=== PATIENT | female | born 1975 | race Caucasian/White ===

== ENCOUNTER 2016-10-14 19:31 | Emergency (ER) | payer OTHER ==
[~2016-10-14] VITALS: Ht 172.7 cm; Wt 107.0 kg
[~2016-10-14 19:31] MED LIST: PRD20T PO
--- OUTSIDE RECORDS SUMMARY | 2016-10-14 19:35 | XMS REPORT | Continuity of Care Document ---
Author Author [facility] Organization [facility] Address Unknown Phone Unavailable Care Team Providers Care General Farmer Name Role Phone [facility] OF PCP Insurance Providers Payer Name Policy Number Subscriber Name Relationship Self Pay Nancy Hernadez 18 Self / Same As Patient Advance Directives Directive Response Recorded Date/Time Advance Directives No 05/19/16 1:33pm Resuscitation Status Full Code 05/19/16 1:33pm Chief Complaint and Reason for Visit Chief Complaint Back Problems Reason for Visit spinal stenosis Problems No problem information available. Medications Current Home Medications Medication Dose Units Route Directions Days/Qty Instructions Start Date Prednisone 20 Mg 20 Mg Oral As Directed 24 Take 3 tabs(60mg)daily, in a.m. 3 days. Then take 2 tabs each a.m. 5 days 10 take 1 tab each a.m. 5 days 05/19/16 Social History Social History Problem Response Recorded Date/Time Alcohol Use Occasionally Uses 05/19/2016 1:33pm Recreational Drug Use No 05/19/2016 1:33pm Recent Foreign Travel No 05/19/2016 12:30pm Recent Infectious Disease Exposure No 05/19/2016 12:30pm Hospitalization with Isolation Denies 05/19/2016 12:30pm Smoking Status Current Everyday Smoker 05/19/2016 1:33pm Recent Hopitalizations No 05/19/2016 1:33pm Hospitalization with Isolation Denies 05/19/2016 12:30pm Query Response Start Date Stop Date Smoking Status Current Everyday Smoker Hospital Discharge Instructions No hospital discharge instructions. Plan of Care Discharge Date 05/19/16 3:25pm Disposition 01 HOME, SELF-CARE Condition at Discharge Stable/Unchanged Instructions/Education Provided Lumbar Spinal Stenosis (ED) Prescriptions See Medication Section Referrals [facility] - Primary Care Physician Additional Instructions/Education All discharge instructions reviewed with patient and/or family. Voiced understanding. Take prednisone as directed. Make arrangements with spinal surgery for consultation. Functional Status No functional status results. Allergies, Adverse Reactions, Alerts No known allergies. Immunizations No immunization records. Vital Signs Acute Vital Signs Vital Response Date/Time Temperature (Fahrenheit) 97.5 degrees F (97.6 - 99.5) 05/19/2016 3:17pm Temperature (Calculated Celsius) 36.41319 degrees C (36.4 - 37.5) 05/19/2016 3:17pm Pulse Rate (adult) 70 bpm (60 - 90) 05/19/2016 12:30pm Respiratory Rate 16 bpm (12 - 24) 05/19/2016 12:30pm Blood Pressure 135/70 mm Hg 05/19/2016 12:30pm Blood Pressure Mean 91 mm Hg 05/19/2016 12:30pm Pain Numeric Pain Scale 7 05/19/2016 3:17pm Height (Feet) 5 feet 05/19/2016 12:30pm Height (Inches) 8 inches 05/19/2016 12:30pm Height (Calculated Centimeters) 172.809159 cm 05/19/2016 12:30pm Weight (Pounds) 195 pounds 05/19/2016 12:30pm Weight (Calculated Kilograms) 88.670472 kilograms 05/19/2016 12:30pm Capillary Refill Capillary Refill Less Than 3 Seconds 05/19/2016 12:30pm Height 5 ft 8 in Weight 195 lb Body Mass Index 29.6 kg/m^2 Results Laboratory Results Test Name Result Units Flags Reference Collection Date/Time Result Date/ Time Comments White Blood Count 10.2 10^3/uL 4.3-11.0 05/19/2016 1:57pm 05/19/2016 2: 04pm Red Blood Count 4.69 10^6/uL 4.35-5.85 05/19/2016 1:57pm 05/19/2016 2: 04pm Hemoglobin 14.4 G/DL 11.5-16.0 05/19/2016 1:57pm 05/19/2016 2:04pm Hematocrit 42 % 35-52 05/19/2016 1:57pm 05/19/2016 2:04pm Mean Corpuscular Volume 90 FL 80-99 05/19/2016 1:57pm 05/19/2016 2: 04pm Mean Corpuscular Hemoglobin 31 PG 25-34 05/19/2016 1:57pm 05/19/2016 2: 04pm Mean Corpuscular Hemoglobin Concent 34 G/DL 32-36 05/19/2016 1:57pm 2:04pm Red Cell Distribution Width 13.4 % 10.0-14.5 05/19/2016 1:57pm 2015 2:04pm Platelet Count 290 10^3/uL 130-400 05/19/2016 1:57pm 05/19/2016 2:04pm Mean Platelet Volume 11.4 FL H 7.4-10.4 05/19/2016 1:57pm 05/19/2016 2: 04pm Neutrophils (%) (Auto) 64 % 42-75 05/19/2016 1:57pm 05/19/2016 2:04pm Lymphocytes (%) (Auto) 26 % 12-44 05/19/2016 1:57pm 05/19/2016 2:04pm Monocytes (%) (Auto) 8 % 0-12 05/19/2016 1:57pm 05/19/2016 2:04pm Eosinophils (%) (Auto) 2 % 0-10 05/19/2016 1:57pm 05/19/2016 2:04pm Basophils (%) (Auto) 0 % 0-10 05/19/2016 1:57pm 05/19/2016 2:04pm Neutrophils # (Auto) 6.5 X 10^3 1.8-7.8 05/19/2016 1:57pm 05/19/2016 2: 04pm Lymphocytes # (Auto) 2.7 X 10^3 1.0-4.0 05/19/2016 1:57pm 05/19/2016 2: 04pm Monocytes # (Auto) 0.8 X 10^3 0.0-1.0 05/19/2016 1:57pm 05/19/2016 2: 04pm Eosinophils # (Auto) 0.2 10^3/uL 0.0-0.3 05/19/2016 1:57pm 05/19/2016 2 :04pm Basophils # (Auto) 0.0 10^3/uL 0.0-0.1 05/19/2016 1:57pm 05/19/2016 2: 04pm Urine Color YELLOW 05/19/2016 1:45pm 05/19/2016 2:08pm Urine Clarity CLEAR 05/19/2016 1:45pm 05/19/2016 2:08pm Urine pH 6 5-9 05/19/2016 1:45pm 05/19/2016 2:08pm Urine Specific [place] 1.020 1.016-1.022 05/19/2016 1:45pm 2015 2:08pm Urine Protein NEGATIVE NEGATIVE 05/19/2016 1:45pm 05/19/2016 2:08pm Urine Glucose (UA) NEGATIVE NEGATIVE 05/19/2016 1:45pm 05/19/2016 2: 08pm Urine RBC (Auto) NEGATIVE NEGATIVE 05/19/2016 1:45pm 05/19/2016 2: 08pm Urine Ketones NEGATIVE NEGATIVE 05/19/2016 1:45pm 05/19/2016 2:08pm Urine Nitrite NEGATIVE NEGATIVE 05/19/2016 1:45pm 05/19/2016 2:08pm Urine Bilirubin NEGATIVE NEGATIVE 05/19/2016 1:45pm 05/19/2016 2: 08pm Urine Urobilinogen NORMAL MG/DL NORMAL 05/19/2016 1:45pm 05/19/2016 2: 08pm Urine Leukocyte Esterase NEGATIVE NEGATIVE 05/19/2016 1:45pm 2015 2:08pm Urine RBC NONE /HPF 05/19/2016 1:45pm 05/19/2016 2:08pm Urine WBC RARE /HPF 05/19/2016 1:45pm 05/19/2016 2:08pm Urine Bacteria MODERATE /HPF * 05/19/2016 1:45pm 05/19/2016 2:08pm Urine Squamous Epithelial Cells 5-10 /HPF 05/19/2016 1:45pm 2015 2:08pm Urine Crystals NONE /LPF 05/19/2016 1:45pm 05/19/2016 2:08pm Urine Casts NONE /LPF 05/19/2016 1:45pm 05/19/2016 2:08pm Urine Mucus SMALL /LPF * 05/19/2016 1:45pm 05/19/2016 2:08pm Urine Culture Indicated YES 05/19/2016 1:45pm 05/19/2016 2:08pm Sodium Level 138 MMOL/L 135-145 05/19/2016 1:57pm 05/19/2016 2:24pm Potassium Level 4.2 MMOL/L 3.6-5.0 05/19/2016 1:57pm 05/19/2016 2:24pm Chloride Level 111 MMOL/L H 98-107 05/19/2016 1:57pm 05/19/2016 2:24pm Carbon Dioxide Level 19 MMOL/L L 21-32 05/19/2016 1:57pm 05/19/2016 2: 24pm Anion Gap 8 MMOL/L 5-14 05/19/2016 1:57pm 05/19/2016 2:24pm Blood Urea Nitrogen 10 MG/DL 7-18 05/19/2016 1:57pm 05/19/2016 2:24pm Creatinine 0.67 MG/DL 0.60-1.30 05/19/2016 1:57pm 05/19/2016 2:24pm BUN/Creatinine Ratio 15 05/19/2016 1:57pm 05/19/2016 2:24pm Estimat Glomerular Filtration Rate > 60 05/19/2016 1:57pm 2015 2:24pm GFR INTERPRETIVE DATA UNITS FOR ESTIMATED GFR (eGFR): mL/min/1.73 M2 REFERENCE RANGE FOR ESTIMATED GFR (eGFR) eGFR NORMAL eGFR >60 MODERATELY DECREASED eGFR 30-59 SEVERLY DECREASED eGFR 15-29 KIDNEY FAILURE <15 (OR DIALYSIS) Glucose Level 111 MG/DL H 70-105 05/19/2016 1:57pm 05/19/2016 2:24pm Calcium Level 9.0 MG/DL 8.5-10.1 05/19/2016 1:57pm 05/19/2016 2:24pm Total Bilirubin 0.3 MG/DL 0.1-1.0 05/19/2016 1:57pm 05/19/2016 2:24pm Alkaline Phosphatase 76 U/L 40-136 05/19/2016 1:57pm 05/19/2016 2:24pm Aspartate Amino Transf (AST/SGOT) 14 U/L 5-34 05/19/2016 1:57pm 2015 2:24pm Alanine Aminotransferase (ALT/SGPT) 20 U/L 0-55 05/19/2016 1:57pm 05/19 2:24pm Total Protein 6.6 G/DL 6.4-8.2 05/19/2016 1:57pm 05/19/2016 2:24pm Albumin 3.7 G/DL 3.2-4.5 05/19/2016 1:57pm 05/19/2016 2:24pm Procedures No known history of procedures. Encounters Encounter Location Arrival/Admit Date Discharge/Depart Date Attending Provider Departed Emergency Room [facility] 05/19/16 12:14pm 3:25pm BAKARI DYE MD Recent Diagnosis
[2016-10-14] MEDS ORDERED: OMEP20CA12 PO (19:38)
[2016-10-14] MEDS ORDERED: LEVO25TA2 PO (19:38)
--- NOTE | 2016-10-14 20:00 | ED EENT ---
History of Present Illness General Chief Complaint: Oral/Throat Problems Stated Complaint: THROAT AND TONGUE SWELLING/NECK SWELLING AND PAIN Nursing Triage Note: Pt c/o posterior tongue swelling and throat swelling starting approx 20 min ago. Pt denies SOA. Pt reports difficulty swallowing. Pt unsure of any new foods or medications but states she started using vaport cigarettes today for first time. Source: patient, RN notes reviewed Exam Limitations: no limitations History of Present Illness Time seen by provider: 20:00 Initial Comments As above. No previous, or similar episodes. No known fever. 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) Severity: moderate Location: throat Prearrival Treatment: no prearrival treatment Modifying Factors: Improves With Other (unknown) Associated Symptoms: No fever, sore throat Allergies and Home Medications Allergies Coded Allergies: erythromycin base (Unverified Allergy, Unknown, 10/14/16) Home Medications Cephalexin 500 Mg Capsule #20 500 MG PO BID Prescribed by: FARIDA DUNCAN on 10/14/162125 Levothyroxine Sodium 25 Mcg Tablet Unknown Dose PO (Reported) Omeprazole 20 Mg Capsule.dr 20 MG PO DAILY (Reported) Review of Systems Constitutional: see HPINo fever Throat: see HPI pain swelling painful swallowing : No All Other Systems Reviewed Negative Unless Noted: Yes (Negative excepted noted.) Past Iyjvmtp-Hnheos-Aiavlb Hx Patient Social History Alcohol Use: Occasionally Uses Recreational Drug Use: No Smoking Status: Current Everyday Smoker Type Used: Cigarettes, Electronic/Vapor Recent Foreign Travel: No Contact w/Someone Who Travel: No Recent Infectious Disease Expo: No Recent Hopitalizations: No Surgeries HX Surgeries: Yes (right shoulder) Surgeries: Hysterectomy, Tonsillectomy Respiratory Hx Respiratory Disorders: No Cardiovascular Hx Cardiac Disorders: No Neurological Hx Neurological Disorders: No Reproductive System Hx Reproductive Disorders: No Genitourinary Hx Genitourinary Disorders: No Gastrointestinal Hx Gastrointestinal Disorders: Yes Gastrointestinal Disorders: Gastroesophageal Reflux Musculoskeletal Hx Musculoskeletal Disorders: No Musculoskeletal Disorders: Fibromyalgia Endocrine Hx Endocrine Disorders: Yes Endocrine Disorders: Hypothyroidsim HEENT HX ENT Disorders: No Cancer Hx Cancer: No Psychosocial Hx Psychiatric Problems: Yes Behavioral Health Disorders: Anxiety Integumentary HX Skin/Integumentary Disorder: No Blood Transfusions Hx Blood Disorders: No Physical Exam Vital Signs Vital Sign - Last 12Hours 10/14/16 19:39 Temp 97.8 Pulse 79 Resp 18 B/P 132/86 Pulse Ox 98 O2 Delivery Room Air General Appearance: WD/WN no apparent distress obese Ears: bilateral ear TM normal, bilateral ear auricle normal, bilateral ear canal normal Mouth/Throat: pharynx normalNo mandibular swelling, pharynx tenderness Neck: supple tender lateral Cardiovascular: regular rate, rhythm Respiratory: No no respiratory distress Gastrointestinal: other (obese) Neurologic/Psychiatric: no motor/sensory deficits alert normal mood/affect oriented x 3 Skin: warm/dryNo rash Progress/Results/Core Measures Results/Orders Lab Results Laboratory Tests Test 10/14/16 20:14 Range/Units Basophils # (Auto) 0.0 0.0-0.1 10^3/uL Basophils (%) (Auto) 0 0-10 % Eosinophils # (Auto) 0.2 0.0-0.3 10^3/uL Eosinophils (%) (Auto) 1 0-10 % Hematocrit 44 35-52 % Hemoglobin 14.9 11.5-16.0 G/DL Lymphocytes # (Auto) 2.7 1.0-4.0 X 10^3 Lymphocytes (%) (Auto) 21 12-44 % Mean Corpuscular Hemoglobin 31 25-34 PG Mean Corpuscular Hemoglobin Concent 34 32-36 G/DL Mean Corpuscular Volume 90 80-99 FL Mean Platelet Volume 11.5 H 7.4-10.4 FL Monocytes # (Auto) 0.7 0.0-1.0 X 10^3 Monocytes (%) (Auto) 6 0-12 % Neutrophils # (Auto) 9.2 H 1.8-7.8 X 10^3 Neutrophils (%) (Auto) 72 42-75 % Platelet Count 278 130-400 10^3/uL Red Blood Count 4.86 4.35-5.85 10^6/uL Red Cell Distribution Width 13.1 10.0-14.5 % White Blood Count 12.8 H 4.3-11.0 10^3/uL My Orders Orders-FARIDA DUNCAN DO Cbc With Automated Diff (10/14/16 20:03) Dexamethasone Pf Injection (Decadron Pf (10/14/16 20:15) Ct Neck (Soft Tissue) Wo (10/14/16 20:26) Cephalexin Capsule (Keflex Capsule) (10/14/16 21:15) Ketorolac Injection (Toradol Injection) (10/14/16 21:15) Medications Given in ED Current Medications Medications Dose Ordered Sig/Lorie Route Start Time Stop Time Status Last Admin Dose Admin Cephalexin HCl 500 mg ONCE ONCE PO 10/14/16 21:15 10/14/16 21:16 DC 10/14/16 21:37 500 MG Dexamethasone Sodium Phosphate 10 mg ONCE ONCE IM 10/14/16 20:15 10/14/16 20:16 DC 10/14/16 20:14 10 MG Ketorolac Tromethamine 60 mg ONCE ONCE IM 10/14/16 21:15 10/14/16 21:16 DC 10/14/16 21:37 60 MG Vital Signs/I&O Vital Sign - Last 12Hours 10/14/16 10/14/16 19:39 21:45 Temp 97.8 97.8 Pulse 79 79 Resp 18 18 B/P 132/86 Pulse Ox 98 98 O2 Delivery Room Air Blood Pressure Mean: 101 Diagnostic Imaging Diagonstic Imaging: CT Plain Films/CT/US/NM/MRI: other (neck unremarkable) Departure Impression Impression: Primary Impression: Acute pharyngitis Disposition: 01 HOME, SELF-CARE Condition: Improved Departure-Patient Inst. Decision time for Depature: 21:25 Referrals: [facility] (PCP/Family) Primary Care Physician Patient Instructions: Sore Throat, Adult (DC) Scripts Cephalexin (Keflex)500 Mg [id number] Mg PO BID #20 CAP Ref 0 Prov:FARIDA DUNCAN DO 10/14/16 FARIDA DUNCAN DO Oct 14, 2016 20:00
[2016-10-14] MEDS ORDERED: DEXAMETHASONE PF 10 MG/ML (DECADRON) VIAL IM ONE (20:15)
[2016-10-14 20:22] LABS: BASOPHILS % (AUTO) 0 % (0-10); EOSINOPHILS # (AUTO) 0.2 10^3/uL (0.0-0.3); EOSINOPHILS % (AUTO) 1 % (0-10); LYMPHOCYTES # (AUTO) 2.7 X 10^3 (1.0-4.0); LYMPHOCYTES % (AUTO) 21 % (12-44); MEAN CORPUSCULAR HEMOGLOBIN 31 PG (25-34); MEAN CORPUSCULAR HGB CONC 34 G/DL (32-36); MEAN CORPUSCULAR VOLUME 90 FL (80-99); MEAN PLATELET VOLUME 11.5 FL (7.4-10.4); MONOCYTES # (AUTO) 0.7 X 10^3 (0.0-1.0); MONOCYTES % (AUTO) 6 % (0-12); NEUTROPHILS # (AUTO) 9.2 X 10^3 (1.8-7.8); NEUTROPHILS % (AUTO) 72 % (42-75); PLATELET COUNT 278 10^3/uL (130-400); RED BLOOD COUNT 4.86 10^6/uL (4.35-5.85); RED CELL DISTRIBUTION WIDTH 13.1 % (10.0-14.5); WHITE BLOOD COUNT 12.8 10^3/uL (4.3-11.0)
--- NOTE | 2016-10-14 21:02 | Diagnostic Imaging Report ---
PROCEDURE: CT neck soft tissue without contrast. TECHNIQUE: Multiple contiguous axial images were obtained through the neck without the use of intravenous contrast. INDICATION: Throat swelling. FINDINGS: The oropharynx and nasopharynx show no asymmetry or mass effect. No cervical fluid collection revealed at this nonenhanced exam. No evidence for abscess or hematoma. No airway narrowing. The epiglottis is unremarkable. Trachea is unremarkable. Thoracic inlet and visualized pulmonary apices are nonacute. No bony destructive process. No suspicious hugo mass. The visualized calvarium, mastoids, paranasal sinuses, orbits and partially visualized intracranial structures all appear nonacute. IMPRESSION: No mass effect, airway compromise or fluid collection identified. Dictated by: Dictated on workstation # [id number]
[2016-10-14] MEDS ORDERED: CEPHALEXIN 250 MG (KEFLEX) CAP PO ONE (21:15)
[2016-10-14] MEDS ORDERED: KETOROLAC 60 MG/2 ML VIAL IM ONE (21:15)
[2016-10-14] MEDS ORDERED: CEPH-507 PO (21:26)
[2016-10-14 21:45] VITALS: BP 132/86
== END 2016-10-14 21:45 | disposition home or self-care (01) ==
LOC: EDUNIT# 19:31 → ER 19:32
DX: J02.9 Acute pharyngitis, unspecified (principal); E66.9 Obesity, unspecified; F17.210 Nicotine dependence, cigarettes, uncomplicated
CPT/HCPCS: 36415; 70490; 85025; 96372; 99283

== ENCOUNTER → 2016-11-16 | Outpatient (CLI) | payer OTHER ==
[~2016-11-16] MED LIST changes: +CEPH-507 PO; +LEVO25TA2 PO; +NITR-65 PO; +OMEP20CA12 PO; +ONDA4TAB8 SL
--- OUTSIDE RECORDS SUMMARY | 2016-11-16 11:29 | XMS REPORT ---
Author Author BABATUNDE NOGUERA [facility] Address [address] [place] [address] Care Team Providers Care Bus Info Consultant Name Role Phone BABATUNDE NOGUERA Unavailable PROBLEMS Type Condition ICD9-CM Code [id number] Code Onset Dates Condition Status SNOMED Code Assessment Lumbago with sciatica, left side M54.42 May, Active 39200414 ALLERGIES Unknown Allergies SOCIAL HISTORY No smoking Hx information available PLAN OF CARE VITAL SIGNS MEDICATIONS Medication Instructions Dosage Frequency Start Date End Date Duration Status Meloxicam 7.5 MG Orally twice a day 1 tablet 12h 15 May, 2016 30 day(s ) Active RESULTS No Results PROCEDURES No Known procedures IMMUNIZATIONS No Known Immunizations
== END ==
LOC: CARD 11:26
PROVIDERS: ATTEND Nurse Practitioner Community Health
DX: R00.0 Tachycardia, unspecified (principal)
CPT/HCPCS: 93225; 93226

== ENCOUNTER 2017-01-10 20:58 | Emergency (ER) | payer SELFPAY ==
[~2017-01-10] VITALS: Ht 175.3 cm; Wt 107.5 kg
[~2017-01-10 20:58] MED LIST changes: -NITR-65 PO; -ONDA4TAB8 SL
[2017-01-10 21:14] LABS: BASOPHILS % (AUTO) 0 % (0-10); EOSINOPHILS # (AUTO) 0.1 10^3/uL (0.0-0.3); EOSINOPHILS % (AUTO) 1 % (0-10); LYMPHOCYTES # (AUTO) 3.5 X 10^3 (1.0-4.0); LYMPHOCYTES % (AUTO) 31 % (12-44); MEAN CORPUSCULAR HEMOGLOBIN 30 PG (25-34); MEAN CORPUSCULAR HGB CONC 33 G/DL (32-36); MEAN CORPUSCULAR VOLUME 91 FL (80-99); MEAN PLATELET VOLUME 11.1 FL (7.4-10.4); MONOCYTES # (AUTO) 0.7 X 10^3 (0.0-1.0); MONOCYTES % (AUTO) 7 % (0-12); NEUTROPHILS # (AUTO) 6.9 X 10^3 (1.8-7.8); NEUTROPHILS % (AUTO) 61 % (42-75); PLATELET COUNT 274 10^3/uL (130-400); RED BLOOD COUNT 4.64 10^6/uL (4.35-5.85); RED CELL DISTRIBUTION WIDTH 13.2 % (10.0-14.5); WHITE BLOOD COUNT 11.3 10^3/uL (4.3-11.0)
[2017-01-10] MEDS ORDERED: ASPIRIN 81 MG CHEW (CHILDREN'S ASA) PO ONE (21:15)
[2017-01-10 21:24] LABS: PROTHROMBIN TIME PATIENT 12.7 SEC (12.2-14.7)
--- NOTE | 2017-01-10 21:39 | Diagnostic Imaging Report ---
INDICATION: Chest pain. FINDINGS: The heart size, mediastinal configuration, and pulmonary vascularity are within normal limits. There is no pleural effusion, pneumothorax, or pneumonia. The osseous structures are unremarkable. IMPRESSION: No acute cardiopulmonary abnormality. Dictated by: Dictated on workstation # [id number]
[2017-01-10 21:41] LABS: ALANINE AMINOTRANSFERASE 17 U/L (0-55); ALBUMIN 4.1 G/DL (3.2-4.5); ANION GAP 10 MMOL/L (5-14); ASPARTATE AMINO TRANSFERASE 16 U/L (5-34); BILIRUBIN,TOTAL 0.3 MG/DL (0.1-1.0); BLOOD UREA NITROGEN 15 MG/DL (7-18); BUN/CREATININE RATIO 16; CARBON DIOXIDE 23 MMOL/L (21-32); CHLORIDE 108 MMOL/L (98-107); CREATININE SERUM 0.93 MG/DL (0.60-1.30); GFR ESTIMATED > 60; GLUCOSE 112 MG/DL (70-105); MAGNESIUM 2.1 MG/DL (1.8-2.4); POTASSIUM 3.4 MMOL/L (3.6-5.0); SODIUM 141 MMOL/L (135-145); TOTAL PROTEIN 7.4 G/DL (6.4-8.2)
[2017-01-10 21:50] LABS: MYOGLOBIN SERUM 20.4 NG/ML (10.0-92.0)
[2017-01-10 23:13] LABS: BILIRUBIN,URINE NEGATIVE (NEGATIVE); KETONES,URINE NEGATIVE (NEGATIVE); LEUKOCYTE ESTERASE ,URINE 2+ (NEGATIVE); NITRITE,URINE NEGATIVE (NEGATIVE); PH,URINE 6 (5-9); PROTEIN,URINE NEGATIVE (NEGATIVE); UROBILINOGEN,URINE 1 MG/DL (NORMAL)
[2017-01-10] MEDS ORDERED: KETOROLAC 30 MG/ML VIAL IVP ONE (23:15)
[2017-01-10] MEDS ORDERED: ONDA4TAB8 SL (23:40)
[2017-01-10] MEDS ORDERED: NITR-65 PO (23:40)
--- NOTE | 2017-01-10 23:41 | ED Abdominal Pain ---
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 REPORTS HAS A "CRUSHING" FEELING AROUND HER CHEST AT THE RIBS, RADIATING THROUGH TO HER BACK BETWEEN HER SHOULDER BLADES Sepsis Screen: No Definite Risk Source of Information: Patient Exam Limitations: No Limitations History of Present Illness Time Seen By Provider: 21:00 Initial Comments This 41-year-old woman presents to the emergency initially complaining of " chest pain". She describes it as dyspnea and a squeezing sensation around her ribs. However, as she describes the location of the pain in more detail and actually appears to be throughout the upper abdomen. Pain has been in the right upper quadrant intermittently for about 2 weeks. She's been off of her omeprazole for about 3 days. She was resting on the couch at the time of exacerbation tonight. She is tearful and complains of memory difficulties as well. The more intense pain started about one hour ago. She reports vomiting often since September with significant weight loss. On exam the pain seems to be focused around the right upper quadrant and epigastrium. She ate fried chicken gizzards and armenian fries just prior to onset of pain. Allergies and Home Medications Allergies Coded Allergies: erythromycin base (Unverified Allergy, Unknown, 10/14/16) Home Medications Cephalexin 500 Mg Capsule, 500 MG PO BID, #20 Ref 0 Prescribed by: FARIDA DUNCAN on 10/14/162125 Levothyroxine Sodium 25 Mcg Tablet, Unknown Dose PO, (Reported) Nitrofurantoin Monohyd/M-Cryst 100 Mg Capsule, 1 TAB PO BID, #14 Prescribed by: ADEBAYO FARLEY on 01/10/17 2340 Omeprazole 20 Mg Capsule.dr, 20 MG PO DAILY, (Reported) Ondansetron 4 Mg Tab.rapdis, 4 MG SL Q4H PRN for NAUSEA/VOMITING-1ST LINE, #10 Prescribed by: ADEBAYO FARLEY on 01/10/17 2340 Review of Systems Constitutional: see HPI EENTM: No Symptoms Reported Respiratory: See HPI Cardiovascular: No Symptoms Reported Gastrointestinal: See HPI Genitourinary: No Symptoms Reported Musculoskeletal: no symptoms reported Skin: no symptoms reported Psychiatric/Neurological: See HPI Endocrine: No Symptoms Reported Past Ioelwyy-Ycgwto-Phtxlg Hx Patient Social History Alcohol Use: Denies Use Recreational Drug Use: No Smoking Status: Current Everyday Smoker Type Used: Cigarettes, Electronic/Vapor Recent Foreign Travel: No Contact w/Someone Who Travel: No Recent Infectious Disease Expo: No Recent Hopitalizations: No Surgeries HX Surgeries: Yes (right shoulder) Surgeries: Adenoidectomy, Hysterectomy, Orthopedic, Tonsillectomy Respiratory Hx Respiratory Disorders: No Cardiovascular Hx Cardiac Disorders: No Neurological Hx Neurological Disorders: No Reproductive System Hx Reproductive Disorders: No Genitourinary Hx Genitourinary Disorders: No Gastrointestinal Hx Gastrointestinal Disorders: Yes Gastrointestinal Disorders: Gastroesophageal Reflux Musculoskeletal Hx Musculoskeletal Disorders: Yes Musculoskeletal Disorders: Fibromyalgia, Chronic Back Pain Endocrine Hx Endocrine Disorders: Yes Endocrine Disorders: Hypothyroidsim HEENT HX ENT Disorders: No Cancer Hx Cancer: No Psychosocial Hx Psychiatric Problems: Yes Behavioral Health Disorders: Anxiety Integumentary HX Skin/Integumentary Disorder: No Blood Transfusions Hx Blood Disorders: No Physical Exam Vital Signs VS - Last 72 Hours, by Label 01/10/17 01/10/17 01/10/17 21:01 21:01 23:47 Temp 98.1 Pulse 80 60 Resp 20 18 B/P (MAP) 172/90 Pulse Ox 96 95 O2 Delivery Room Air Room Air Capillary Refill : Less Than 3 Seconds General Appearance: WD/WN, mild distress HEENT: PERRL/EOMI, normal ENT inspection Neck: normal inspection Respiratory: lungs clear, normal breath sounds, no respiratory distress, no accessory muscle use Cardiovascular: regular rate, rhythm, no edema, no murmur Gastrointestinal: normal bowel sounds, soft, tenderness (right upper quadrant and epigastrium) Extremities: non-tender, normal inspection, no pedal edema, no calf tenderness , other (negative Bartolome) Neurologic/Psychiatric: lokie driver II-XII nml as tested, no motor/sensory deficits, alert, oriented x 3, other (anxious, tearful) Skin: normal color, warm/dry Progress/Results/Core Measures Results/Orders Lab Results Laboratory Tests Test 01/10/17 21:06 01/10/17 21:26 Range/Units White Blood Count 11.3 H 4.3-11.0 10^3/uL Red Blood Count 4.64 4.35-5.85 10^6/uL Hemoglobin 14.0 11.5-16.0 G/DL Hematocrit 42 35-52 % Mean Corpuscular Volume 91 80-99 FL Mean Corpuscular Hemoglobin 30 25-34 PG Mean Corpuscular Hemoglobin Concent 33 32-36 G/DL Red Cell Distribution Width 13.2 10.0-14.5 % Platelet Count 274 130-400 10^3/uL Mean Platelet Volume 11.1 H 7.4-10.4 FL Neutrophils (%) (Auto) 61 42-75 % Lymphocytes (%) (Auto) 31 12-44 % Monocytes (%) (Auto) 7 0-12 % Eosinophils (%) (Auto) 1 0-10 % Basophils (%) (Auto) 0 0-10 % Neutrophils # (Auto) 6.9 1.8-7.8 X 10^3 Lymphocytes # (Auto) 3.5 1.0-4.0 X 10^3 Monocytes # (Auto) 0.7 0.0-1.0 X 10^3 Eosinophils # (Auto) 0.1 0.0-0.3 10^3/uL Basophils # (Auto) 0.0 0.0-0.1 10^3/uL Prothrombin Time 12.7 12.2-14.7 SEC INR Comment 1.0 0.8-1.4 Activated Partial Thromboplast Time 26 24-35 SEC Sodium Level 141 135-145 MMOL/L Potassium Level 3.4 L 3.6-5.0 MMOL/L Chloride Level 108 H 98-107 MMOL/L Carbon Dioxide Level 23 21-32 MMOL/L Anion Gap 10 5-14 MMOL/L Blood Urea Nitrogen 15 7-18 MG/DL Creatinine 0.93 0.60-1.30 MG/DL Estimat Glomerular Filtration Rate > 60 BUN/Creatinine Ratio 16 Glucose Level 112 H 70-105 MG/DL Calcium Level 9.0 8.5-10.1 MG/DL Magnesium Level 2.1 1.8-2.4 MG/DL Total Bilirubin 0.3 0.1-1.0 MG/DL Aspartate Amino Transf (AST/SGOT) 16 5-34 U/L Alanine Aminotransferase (ALT/SGPT) 17 0-55 U/L Alkaline Phosphatase 82 40-136 U/L Myoglobin 20.4 10.0-92.0 NG/ML Troponin I < 0.30 <0.30 NG/ML Total Protein 7.4 6.4-8.2 G/DL Albumin 4.1 3.2-4.5 G/DL Lipase 12 8-78 U/L Urine Color CAT H Urine Clarity SLIGHTLY CLOUDY Urine pH 6 5-9 Urine Specific Milo 1.020 1.016-1.022 Urine Protein NEGATIVE NEGATIVE Urine Glucose (UA) NEGATIVE NEGATIVE Urine Ketones NEGATIVE NEGATIVE Urine Nitrite NEGATIVE NEGATIVE Urine Bilirubin NEGATIVE NEGATIVE Urine Urobilinogen 1 NORMAL MG/DL Urine Leukocyte Esterase 2+ H NEGATIVE Urine RBC (Auto) 1+ H NEGATIVE Urine RBC RARE /HPF Urine WBC 10-25 H /HPF Urine Crystals NONE /LPF Urine Bacteria FEW H /HPF Urine Casts NONE /LPF Urine Mucus LARGE H /LPF Urine Culture Indicated YES My Orders Orders - ADEBAYO FITCH MD Cbc With Automated Diff (01/10/17 21:02) Magnesium (01/10/17 21:02) Chest 1 View, Ap/Pa Only (01/10/17 21:02) Ekg Tracing (01/10/17 21:02) Cardiac Profile 1 (01/10/17 21:02) Comprehensive Metabolic Panel (01/10/17 21:02) Myoglobin Serum (01/10/17 21:02) Protime With Inr (01/10/17 21:02) Partial Thromboplastin Time (01/10/17 21:02) O2 (01/10/17 21:02) Monitor-Rhythm Ecg Trace Only (01/10/17 21:02) Saline Lock/Iv-Start (01/10/17 21:02) Lipase (01/10/17 21:13) Aspirin Chewable Tablet (Baby Aspirin Ch (01/10/17 21:15) Ketorolac Injection (Toradol Injection) (01/10/17 23:15) Ua Culture If Indicated (01/10/17 23:03) Urine Culture (01/10/17 21:26) Nitrofurantoin Capsule,Macro (Macrobid C (01/10/17 23:45) Ondansetron Injection (Zofran Injectio (01/10/17 23:43) Medications Given in ED Vital Signs/I&O Vital Sign - Last 12Hours 01/10/17 01/10/17 01/10/17 21:01 21:01 23:47 Temp 98.1 Pulse 80 60 Resp 20 18 B/P (MAP) 172/90 Pulse Ox 96 95 O2 Delivery Room Air Room Air Blood Pressure Mean: 117 Progress Note : Progress Note Patient was given aspirin as part of the chest pain protocol. Workup was essentially unremarkable. Zofran was given for nausea and vomiting. Toradol was given for additional pain relief. Symptomatology is suspicious for gallbladder pathology. Patient was advised to obtain a gallbladder ultrasound after being nothing by mouth for a longer period of time. Macrobid was started for treatment of urinary tract infection. ECG Initial ECG Impression Date: January 10, 2017 Initial ECG Impression Time: 21:06 Initial ECG Rate: 80 Initial ECG Rhythm: Normal Sinus Initial ECG Intervals Right bundle branch block Comment Normal sinus rhythm with no ST elevation or depression. Right bundle branch block. No axis deviation. Diagnostic Imaging Diagonstic Imaging: Xray Plain Films/CT/US/NM/MRI: chest Comments X-ray viewed by me. Report not yet available. No acute abnormalities appreciated. Departure Impression Impression: Primary Impression: Right upper quadrant pain Additional Impressions: Nausea and vomiting Qualified Codes: R11.2 - Nausea with vomiting, unspecified Urinary tract infection Qualified Codes: N39.0 - Urinary tract infection, site not specified Disposition: HOME, SELF-CARE Condition: Improved Departure-Patient Inst. Decision time for Depature: 23:15 Referrals: ASHIA CORRALES MD (PCP) Primary Care Physician BABATUNDE NOGUERA (Family) Primary Care Physician Patient Instructions: Acute Abdomen (Belly Pain) Add. Discharge Instructions: Follow-up with your primary care provider soon as possible. Discussed obtaining an ultrasound of the gallbladder. Eat a low-fat diet and eat small quantities. Drink plenty of clear liquids. Return to the ER if symptoms worsen. Complete your antibiotic as prescribed. Take Tylenol (acetaminophen) up to 1000 mg every 6 hours as needed for pain. All discharge instructions reviewed with patient and/or family. Voiced understanding. Scripts Nitrofurantoin Monohyd/M-Cryst (Macrobid 100 mg Capsule) 100 Mg Capsule 1 TAB PO BID, #14 CAP Prov: ADEBAYO FITCH MD 01/10/17 Ondansetron (Zofran Odt) 4 Mg Tab.rapdis 4 MG SL Q4H Y for NAUSEA/VOMITING-1ST LINE, #10 TAB Prov: ADEBAYO FITCH MD 01/10/17 ADEBAYO FITCH MD January 10, 2017 23:41
[2017-01-10] MEDS ORDERED: ONDANSETRON 4 MG/2 ML (SDV) Z0FRAN ONE (23:43)
[2017-01-10] MEDS ORDERED: NITROFURANTOIN 100 MG (MACROBID) CAPSULE PO ONE (23:45)
[2017-01-10 23:47] VITALS: BP 126/88
[2017-01-11] MEDS ORDERED: ONDANSETRON 4 MG/2 ML (SDV) Z0FRAN IVP ONE
== END 2017-01-10 23:47 | disposition home or self-care (01) ==
LOC: EDUNIT# 20:58 → ER 21:00
DX: R10.11 Right upper quadrant pain (principal); N39.0 Urinary tract infection, site not specified; R11.2 Nausea with vomiting, unspecified; F17.210 Nicotine dependence, cigarettes, uncomplicated
CPT/HCPCS: 36415; 71010; 80053; 81000; 83690; 83735; 83874; 84484; 85025; 85610; 85730; 87088; 93005

== ENCOUNTER → 2017-05-02 | Outpatient (CLI) | payer OTHER ==
[~2017-05-02] MED LIST changes: +NITR-65 PO; +ONDA4TAB8 SL
--- NOTE | 2017-05-02 11:55 | Diagnostic Imaging Report ---
PROCEDURE: US Carotid Duplex Bilateral. TECHNIQUE: Multiple real-time grayscale images were obtained over the carotid arteries in various projections bilaterally. Additional duplex Doppler and color Doppler images were also obtained. INDICATION: Dizziness and syncope. FINDINGS: There are no focally elevated velocities in either internal carotid artery. The ICA/CCA ratios are within normal limits, bilaterally. There is antegrade flow in the vertebral arteries, bilaterally. Grayscale images demonstrate minimal carotid plaque, bilaterally. IMPRESSION: Minimal bilateral carotid plaque however spectral analysis shows no evidence of a hemodynamically significant stenosis in either internal carotid artery. Dictated by: Dictated on workstation # [id number]
== END ==
LOC: RAD 10:37
PROVIDERS: ATTEND Family Medicine
DX: R42 Dizziness and giddiness (principal); R55 Syncope and collapse
CPT/HCPCS: 93880

== ENCOUNTER → 2017-07-18 | Outpatient (CLI) | payer OTHER ==
--- NOTE | 2017-07-18 17:50 | Diagnostic Imaging Report ---
INDICATION: Lump near the angle of jaw on left side x3 days. TECHNIQUE: Multiple real time wilson scale sonographic images were obtained of the soft tissue of the neck. CORRELATION STUDY: None FINDINGS: Imaging in the area of palpable concern demonstrates a suggestion of slightly hypoechoic area of asymmetric echogenicity. This is nonspecific but perhaps mildly prominent lymph node at 1.9 x 1.0 x 1.2 cm. This appears to be near the region of the submandibular gland. IMPRESSION: 1.Nonspecific hypoechoic nodule near palpable concern. This may be reflective of a potential lymph node. Other mass lesions unable to be excluded given ultrasound imaging. Dictated by: Dictated on workstation # [id number]
== END ==
LOC: RAD 16:51
PROVIDERS: ATTEND Family Medicine
DX: R22.1 Localized swelling, mass and lump, neck (principal)
CPT/HCPCS: 76536

== ENCOUNTER 2017-08-03 20:13 | Emergency (ER) | payer OTHER ==
[~2017-08-03] VITALS: Ht 175.3 cm; Wt 107.5 kg
--- OUTSIDE RECORDS SUMMARY | 2017-08-03 20:19 | XMS REPORT ---
Author Author BABATUNDE NOGUERA [facility] Address [address] [place] [address] Care Team Providers Care Extension Agent Name Role Phone BABATUNDE NOGUERA Unavailable PROBLEMS Type Condition ICD9-CM Code [id number] Code Onset Dates Condition Status SNOMED Code Problem Reactive depression F32.9 Active 92419298 Problem Major depressive disorder, recurrent, moderate F33.1 Active 04135574 Problem Gastroesophageal reflux disease without esophagitis K21.9 Active 435360309 Problem Irritable bowel syndrome with diarrhea K58.0 Active 687915082 Problem Fibromyalgia M79.7 Active 723868647 Problem Obesity (BMI 30.0-34.9) E66.9 Active 019109820268634 Problem Obesity (BMI 30-39.9) E66.9 Active 833204022 Problem Chronic fatigue R53.82 Active 52284970 Problem Right bundle branch block (RBBB) I45.10 Active 31850608 ALLERGIES Substance Reaction Event Type Date Status Topamax Unknown Drug Allergy January, Active Azithromycin Unknown Drug Allergy January, Active pain patches Unknown Non Drug Allergy January, Active SOCIAL HISTORY Never Assessed PLAN OF CARE Activity Details Follow Up 3 Months Reason:Fibromyalgia VITAL SIGNS Height 69 in 2017-01-16 Weight 240.7 lbs 2017-01-16 Temperature 98.3 degrees Fahrenheit 2017-01-16 Heart Rate 60 bpm 2017-01-16 Respiratory Rate 18 2017-01-16 BMI 35.54 kg/m2 2017-01-16 Blood pressure systolic 140 mmHg 2017-01-16 Blood pressure diastolic 94 mmHg 2017-01-16 MEDICATIONS Medication Instructions Dosage Frequency Start Date End Date Duration Status Escitalopram Oxalate 20 MG Orally Once a day 1 tablet 24h 30 days Active Levothyroxine Sodium 100 MCG Active Omeprazole 10 MG Orally Once a day 1 capsule 24h Active RESULTS No Results PROCEDURES No Known procedures IMMUNIZATIONS No Known Immunizations MEDICAL (GENERAL) HISTORY Type Description Date Medical History high blood pressure-denies Medical History fibromyalgia Medical History heart murmur Medical History Hypothyroidism Surgical History rotator cuff right side Surgical History hysterectomy Surgical History TNA Hospitalization History surgeries Hospitalization History child
--- OUTSIDE RECORDS SUMMARY | 2017-08-03 20:19 | XMS REPORT ---
Author Author BABATUNDE NOGUERA [facility] Address [address] [place] [address] Care Team Providers Care Deliverer Food Name Role Phone BABATUNDE NOGUERA Unavailable PROBLEMS Type Condition ICD9-CM Code [id number] Code Onset Dates Condition Status SNOMED Code Problem Reactive depression F32.9 Active 26000989 Problem Major depressive disorder, recurrent, moderate F33.1 Active 43413897 Problem Gastroesophageal reflux disease without esophagitis K21.9 Active 450572431 Problem Irritable bowel syndrome with diarrhea K58.0 Active 467004545 Problem Fibromyalgia M79.7 Active 156106269 Problem Obesity (BMI 30.0-34.9) E66.9 Active 973411792614849 Problem Obesity (BMI 30-39.9) E66.9 Active 420924866 Problem Chronic fatigue R53.82 Active 81078520 Problem Right bundle branch block (RBBB) I45.10 Active 14246996 ALLERGIES Substance Reaction Event Type Date Status Topamax Unknown Drug Allergy Dec, Active Azithromycin Unknown Drug Allergy Dec, Active pain patches Unknown Non Drug Allergy Dec, Active SOCIAL HISTORY Never Assessed PLAN OF CARE Activity Details Follow Up 4 Weeks Reason:chronic fatigue VITAL SIGNS Height 69 in 2016-12-19 Weight 246.3 lbs 2016-12-19 Temperature 98.6 degrees Fahrenheit 2016-12-19 Heart Rate 76 bpm 2016-12-19 Respiratory Rate 20 2016-12-19 BMI 36.37 kg/m2 2016-12-19 Blood pressure systolic 124 mmHg 2016-12-19 Blood pressure diastolic 82 mmHg 2016-12-19 MEDICATIONS Medication Instructions Dosage Frequency Start Date End Date Duration Status Bentyl 20 mg Orally Four times a day 1 tablet 6h Dec, Active Tramadol HCl 50 mg Orally 3 times a day 2 tablets 8h Dec, Active Omeprazole 10 MG Orally Once a day 1 capsule 24h Active Escitalopram Oxalate 20 MG Orally Once a day 1 tablet 24h 30 days Active Levothyroxine Sodium 100 MCG Active RESULTS No Results PROCEDURES No Known procedures IMMUNIZATIONS No Known Immunizations MEDICAL (GENERAL) HISTORY Type Description Date Medical History high blood pressure-denies Medical History fibromyalgia Medical History heart murmur Medical History Hypothyroidism Surgical History rotator cuff right side Surgical History hysterectomy Surgical History TNA Hospitalization History surgeries Hospitalization History child
--- OUTSIDE RECORDS SUMMARY | 2017-08-03 20:19 | XMS REPORT ---
Author Author TONY CUEVAS Organization [facility] [place] Address [address] [place] [address] Care Team Providers Care Senior Datastage Developer Name Role Phone TONY CUEVAS Unavailable PROBLEMS Type Condition ICD9-CM Code [id number] Code Onset Dates Condition Status SNOMED Code Problem Reactive depression F32.9 Active 42366254 Problem Major depressive disorder, recurrent, moderate F33.1 Active 49694303 Problem Gastroesophageal reflux disease without esophagitis K21.9 Active 157657637 Problem Irritable bowel syndrome with diarrhea K58.0 Active 475027812 Problem Fibromyalgia M79.7 Active 000332431 Problem Obesity (BMI 30.0-34.9) E66.9 Active 318675895842136 Problem Obesity (BMI 30-39.9) E66.9 Active 551624382 Problem Chronic fatigue R53.82 Active 56295116 Problem Right bundle branch block (RBBB) I45.10 Active 93133677 ALLERGIES No Information SOCIAL HISTORY Never Assessed PLAN OF CARE Activity Details Follow Up 1 Week Reason: VITAL SIGNS MEDICATIONS Unknown Medications RESULTS No Results PROCEDURES Procedure Date Ordered Result Body Site Psych diagnostic evaluation, new patient Oct 19, 2016 IMMUNIZATIONS No Known Immunizations MEDICAL (GENERAL) HISTORY Type Description Date Medical History high blood pressure-denies Medical History fibromyalgia Medical History heart murmur Medical History Hypothyroidism Surgical History rotator cuff right side Surgical History hysterectomy Surgical History TNA Hospitalization History surgeries Hospitalization History child
--- OUTSIDE RECORDS SUMMARY | 2017-08-03 20:19 | XMS REPORT ---
Author Author BABATUNDE NOGUERA Organization [facility] Address [address] [place] [address] Care Team Providers Care Electrical Accessories Assembler Name Role Phone BABATUNDE NOGUERA Unavailable PROBLEMS Type Condition ICD9-CM Code [id number] Code Onset Dates Condition Status SNOMED Code Problem Reactive depression F32.9 Active 49151009 Problem Major depressive disorder, recurrent, moderate F33.1 Active 47480562 Problem Gastroesophageal reflux disease without esophagitis K21.9 Active 089198697 Problem Irritable bowel syndrome with diarrhea K58.0 Active 077103659 Problem Fibromyalgia M79.7 Active 139476723 Problem Obesity (BMI 30.0-34.9) E66.9 Active 429078866327200 Problem Obesity (BMI 30-39.9) E66.9 Active 932141123 Problem Chronic fatigue R53.82 Active 79987557 Problem Right bundle branch block (RBBB) I45.10 Active 55744260 ALLERGIES No Information SOCIAL HISTORY Never Assessed PLAN OF CARE VITAL SIGNS MEDICATIONS Medication Instructions Dosage Frequency Start Date End Date Duration Status Escitalopram Oxalate 20 MG Orally Once a day 1 tablet 24h 30 days Active Clonidine HCl 0.1 MG Orally every 6 hours, PRN 1 tablet Oct, Active RESULTS No Results PROCEDURES No Known procedures IMMUNIZATIONS No Known Immunizations MEDICAL (GENERAL) HISTORY Type Description Date Medical History high blood pressure-denies Medical History fibromyalgia Medical History heart murmur Medical History Hypothyroidism Surgical History rotator cuff right side Surgical History hysterectomy Surgical History TNA Hospitalization History surgeries Hospitalization History child
--- OUTSIDE RECORDS SUMMARY | 2017-08-03 20:19 | XMS REPORT ---
Author Author BABATUNDE NOGUERA [facility] Address [address] [place] [address] Care Team Providers Care Environmental Aide Name Role Phone BABATUNDE NOGUERA Unavailable PROBLEMS Type Condition ICD9-CM Code [id number] Code Onset Dates Condition Status SNOMED Code Problem Reactive depression F32.9 Active 46409013 Problem Major depressive disorder, recurrent, moderate F33.1 Active 23498217 Problem Gastroesophageal reflux disease without esophagitis K21.9 Active 981825072 Problem Irritable bowel syndrome with diarrhea K58.0 Active 966497194 Problem Fibromyalgia M79.7 Active 464555115 Problem Obesity (BMI 30.0-34.9) E66.9 Active 073964551564572 Problem Obesity (BMI 30-39.9) E66.9 Active 773123718 Problem Chronic fatigue R53.82 Active 66158127 Problem Right bundle branch block (RBBB) I45.10 Active 78584031 ALLERGIES Substance Reaction Event Type Date Status Topamax Unknown Drug Allergy Oct, Active Azithromycin Unknown Drug Allergy Oct, Active pain patches Unknown Non Drug Allergy Oct, Active SOCIAL HISTORY Never Assessed PLAN OF CARE Activity Details Follow Up 4 Weeks Reason:Depression VITAL SIGNS Height 69 in 2016-10-19 Weight 242 lbs 2016-10-19 Temperature 98.0 degrees Fahrenheit 2016-10-19 Heart Rate 70 bpm 2016-10-19 Respiratory Rate 18 2016-10-19 BMI 35.73 kg/m2 2016-10-19 Blood pressure systolic 120 mmHg 2016-10-19 Blood pressure diastolic 70 mmHg 2016-10-19 MEDICATIONS Medication Instructions Dosage Frequency Start Date End Date Duration Status Nexium 24HR 20 mg Orally Once a day 1 tablet 24h Oct, 21 days Active Clonidine HCl 0.1 MG Orally every 6 hours, PRN 1 tablet Oct, Active Escitalopram Oxalate 20 MG Orally Once [...]
--- OUTSIDE RECORDS SUMMARY | 2017-08-03 20:19 | XMS REPORT ---
Author Author BABATUNDE NOGUERA [facility] Address [address] [place] [address] Care Team Providers Care Enamel Applier Name Role Phone BABATUNDE NOGUERA Unavailable PROBLEMS Type Condition ICD9-CM Code ADZ05-WE Code Onset Dates Condition Status SNOMED Code Problem Reactive depression F32.9 Active 31844772 Problem Major depressive disorder, recurrent, moderate F33.1 Active 60342674 Problem Gastroesophageal reflux disease without esophagitis K21.9 Active 598737222 Problem Irritable bowel syndrome with diarrhea K58.0 Active 388352853 Problem Fibromyalgia M79.7 Active 555133358 Problem Obesity (BMI 30.0-34.9) E66.9 Active 376870372735611 Problem Obesity (BMI 30-39.9) E66.9 Active 153647895 Problem Chronic fatigue R53.82 Active 53242137 Problem Right bundle branch block (RBBB) I45.10 Active 02924147 ALLERGIES Substance Reaction Event Type Date Status Topamax Unknown Drug Allergy Nov, Active Azithromycin Unknown Drug Allergy Nov, Active pain patches Unknown Non Drug Allergy Nov, Active SOCIAL HISTORY Never Assessed PLAN OF CARE Activity Details Follow Up 2 Weeks Reason:tachycardia VITAL SIGNS Height 69 in 2016-11-16 Weight 246.0 lbs 2016-11-16 Temperature 98.6 degrees Fahrenheit 2016-11-16 Heart Rate 68 bpm 2016-11-16 Respiratory Rate 20 2016-11-16 BMI 36.32 kg/m2 2016-11-16 Blood pressure systolic 124 mmHg 2016-11-16 Blood pressure diastolic 82 mmHg 2016-11-16 MEDICATIONS Medication Instructions Dosage Frequency Start Date End Date Duration Status Escitalopram Oxalate 20 MG Orally Once a day 1 tablet 24h 30 days Active Toprol XL 25 MG Orally Once a day 1 tablet 24h Nov, 30 day(s) Active Omeprazole 10 MG Orally Once a day 1 capsule 24h Active Levothyroxine Sodium 100 MCG Active RESULTS Name Result Date Reference Range TSH 2016-11-16 TSH 2.040 0.450-4.500 CBC 2016-11-16 WBC 10.6 3.4-10.8 RBC 5.11 3.77-5.28 Hemoglobin 15.6 11.1-15.9 Hematocrit 45.3 34.0-46.6 MCV 89 79-97 MCH 30.5 26.6-33.0 MCHC 34.4 31.5-35.7 RDW 13.7 12.3-15.4 Platelets 336 150-379 Neutrophils 65 Lymphs 27 Monocytes 7 Eos 1 Basos 0 Neutrophils (Absolute) 6.8 1.4-7.0 Lymphs (Absolute) 2.9 0.7-3.1 Monocytes(Absolute) 0.8 0.1-0.9 Eos (Absolute) 0.2 0.0-0.4 Baso (Absolute) 0.0 0.0-0.2 Immature Granulocytes 0 Immature Grans (Abs) 0.0 0.0-0.1 CMP 2016-11-16 Glucose, Serum 71 65-99 BUN 11 6-24 Creatinine, Serum 0.71 0.57-1.00 eGFR If NonAfricn Am 105 >59 eGFR If Africn Am 121 >59 BUN/Creatinine Ratio 15 9-23 Sodium, Serum 141 134-144 Potassium, Serum 4.2 3.5-5.2 Chloride, Serum 100 96-106 Carbon Dioxide, Total 25 18-29 Calcium, Serum 9.8 8.7-10.2 Protein, Total, Serum 8.0 6.0-8.5 Albumin, Serum 4.6 3.5-5.5 Globulin, Total 3.4 1.5-4.5 A/G Ratio 1.4 1.2-2.2 Bilirubin, Total 0.3 0.0-1.2 Alkaline Phosphatase, S 88 39-117 AST (SGOT) 13 0-40 ALT (SGPT) 17 0-32 Xray : Chest (IN HOUSE) 2016-11-16 PROCEDURES Procedure Date Ordered Result Body Site EVENT MONITOR 2016-11-16 appt 11/16/2016 patient went to hospital from [facility] EKG, TRACING (IN-HOUSE) 2016-11-16 RBBB VENIPUNCT, ROUTINE* November 16, 2016 CHEST X-RAY November 16, 2016 COMPREHEN METABOLIC PANEL November 16, 2016 COMPLETE CBC W/AUTO DIFF WBC November 16, 2016 ELECTROCARDIOGRAM, TRACING November 16, 2016 ASSAY THYROID STIM HORMONE November 16, 2016 IMMUNIZATIONS No Known Immunizations MEDICAL (GENERAL) HISTORY Type Description Date Medical History high blood pressure-denies Medical History fibromyalgia Medical History heart murmur Medical History Hypothyroidism Surgical History rotator cuff right side Surgical History hysterectomy Surgical History TNA Hospitalization History surgeries Hospitalization History child
[2017-08-03] MEDS ORDERED: LACTATED RINGERS 1,000 ML IV ONE ×2 (20:41→23:08)
[2017-08-03] MEDS ORDERED: ONDANSETRON 4 MG/2 ML (SDV) Z0FRAN IVP ONE ×2 (20:45→23:15)
--- NOTE | 2017-08-03 20:48 | ED Abdominal Pain ---
General Chief Complaint: General Problems/Pain Stated Complaint: CP Nursing Triage Note: c/o being sick for 3 weeks worse tonight Sepsis Screen: No Definite Risk Source of Information: Patient Exam Limitations: No Limitations History of Present Illness Time Seen By Provider: 20:39 Initial Comments Patient was ER with her significant other with chief complaint of 3 weeks progressively worsening dizziness, constipation, nausea especially one to 2 hours after eating. She also experienced some pain with her nausea in her epigastric region described as burning as well as radiating to the right upper quadrant. For the past few days she's also described some upper respiratory symptoms of nasal congestion and no cough but pain on deep inspiration all over her chest. She does not feel short of breath and has no personal coronary history. She does have a history of a murmur which she has been set up with a runway model to have it evaluated by Dr. Barros and her appointment is next week with . She's had no fevers or chills or rash. She describes her nausea and abdominal pain is getting worse directly after eating. She says she had asthma as a child but is not on any medications for that. She does not take any medicines for anything else. Allergies and Home Medications Allergies Coded Allergies: erythromycin base (Unverified Allergy, Unknown, 10/14/16) Home Medications Cephalexin 500 Mg Capsule, 500 MG PO BID, #20 Ref 0 Prescribed by: FARIDA DUNCAN on 10/14/162125 Levothyroxine Sodium 25 Mcg Tablet, Unknown Dose PO, (Reported) Nitrofurantoin Monohyd/M-Cryst 100 Mg Capsule, 1 TAB PO BID, #14 Prescribed by: ADEBAYO FARLEY on 01/10/17 2340 Omeprazole 20 Mg Capsule.dr, 20 MG PO DAILY, (Reported) Ondansetron 4 Mg Tab.rapdis, 4 MG SL Q4H PRN for NAUSEA/VOMITING-1ST LINE, #10 Prescribed by: ADEBAYO FARLEY on 01/10/17 2340 Review of Systems Constitutional: No chills, No diaphoresis, No fever, No malaise EENTM: No Blurred Vision, No Double Vision Respiratory: Denies Cough, Denies Shortness of Air Cardiovascular: Denies Chest Pain, Denies Edema Gastrointestinal: See HPI, Abdomen Distended, Abdominal Pain, Denies Constipated, Denies Diarrhea, Nausea, Denies Vomiting Genitourinary: Denies Discharge, Denies Drainage Musculoskeletal: No back pain, No joint pain Skin: No pruritus, No rash Psychiatric/Neurological: Denies Headache, Denies Numbness, Denies Paresthesia Past Qraoigf-Lueeak-Qbezpt Hx Patient Social History Alcohol Use: Denies Use Recreational Drug Use: No Smoking Status: Current Everyday Smoker Type Used: Cigarettes, Electronic/Vapor Recent Foreign Travel: No Contact w/Someone Who Travel: No Recent Infectious Disease Expo: No Recent Hopitalizations: No Physical Abuse: No Sexual Abuse: No Surgeries History of Surgeries: Yes (right shoulder) Surgeries: Adenoidectomy, Hysterectomy, Orthopedic, Tonsillectomy Respiratory History of Respiratory Disorde: No Cardiovascular History of Cardiac Disorders: No Neurological History of Neurological Disord: No Reproductive System Hx Reproductive Disorders: No Gastrointestinal History of Gastrointestinal Di: Yes Gastrointestinal Disorders: Gastroesophageal Reflux Musculoskeletal History of Musculoskeletal Dis: Yes Musculoskeletal Disorders: Fibromyalgia, Chronic Back Pain Endocrine History of Endocrine Disorders: Yes Endocrine Disorders: Hypothyroidsim Cancer History of Cancer: No Psychosocial History of Psychiatric Problem: Yes Behavioral Health Disorders: Anxiety Suicide Risk Score: 0 Integumentary History of Skin or Integumenta: No Blood Transfusions History of Blood Disorders: No Physical Exam Vital Signs VS - Last 72 Hours, by Label 08/03/17 20:28 Pulse 75 Resp 22 B/P (MAP) 167/104 (125) Pulse Ox 96 Capillary Refill : Less Than 3 Seconds General Appearance: WD/WN, moderate distress HEENT: PERRL/EOMI, pharynx normal Neck: non-tender, normal inspection Respiratory: chest non-tender, lungs clear, normal breath sounds, no respiratory distress, no accessory muscle use Cardiovascular: normal peripheral pulses, regular rate, rhythm Peripheral Pulses: 2+ Dorsalis Pedis (R), 2+ Left Dors-Pedis (L) Gastrointestinal: normal bowel sounds, guarding ( right upper quadrant and epigastric), No rebound, tenderness (positive for Boyle sign) Extremities: normal range of motion, non-tender, normal capillary refill Neurologic/Psychiatric: alert, oriented x 3 Skin: normal color, warm/dry Progress/Results/Core Measures Results/Orders Lab Results Laboratory Tests Test 08/03/17 20:55 08/03/17 23:40 Range/Units White Blood Count 10.7 4.3-11.0 10^3/uL Red Blood Count 4.67 4.35-5.85 10^6/uL Hemoglobin 14.3 11.5-16.0 G/DL Hematocrit 42 35-52 % Mean Corpuscular Volume 90 80-99 FL Mean Corpuscular Hemoglobin 31 25-34 PG Mean Corpuscular Hemoglobin Concent 34 32-36 G/DL Red Cell Distribution Width 12.6 10.0-14.5 % Platelet Count 256 130-400 10^3/uL Mean Platelet Volume 11.7 H 7.4-10.4 FL Neutrophils (%) (Auto) 64 42-75 % Lymphocytes (%) (Auto) 29 12-44 % Monocytes (%) (Auto) 5 0-12 % Eosinophils (%) (Auto) 1 0-10 % Basophils (%) (Auto) 0 0-10 % Neutrophils # (Auto) 6.8 1.8-7.8 X 10^3 Lymphocytes # (Auto) 3.1 1.0-4.0 X 10^3 Monocytes # (Auto) 0.6 0.0-1.0 X 10^3 Eosinophils # (Auto) 0.1 0.0-0.3 10^3/uL Basophils # (Auto) 0.0 0.0-0.1 10^3/uL Prothrombin Time 13.3 12.2-14.7 SEC INR Comment 1.0 0.8-1.4 Activated Partial Thromboplast Time 28 24-35 SEC Sodium Level 141 135-145 MMOL/L Potassium Level 3.7 3.6-5.0 MMOL/L Chloride Level 105 98-107 MMOL/L Carbon Dioxide Level 25 21-32 MMOL/L Anion Gap 11 5-14 MMOL/L Blood Urea Nitrogen 11 7-18 MG/DL Creatinine 0.79 0.60-1.30 MG/DL Estimat Glomerular Filtration Rate > 60 BUN/Creatinine Ratio 14 Glucose Level 112 H 70-105 MG/DL Calcium Level 9.6 8.5-10.1 MG/DL Magnesium Level 1.8 1.8-2.4 MG/DL Total Bilirubin 0.3 0.1-1.0 MG/DL Aspartate Amino Transf (AST/SGOT) 13 5-34 U/L Alanine Aminotransferase (ALT/SGPT) 18 0-55 U/L Alkaline Phosphatase 74 40-136 U/L Total Protein 7.2 6.4-8.2 GM/DL Albumin 4.0 3.2-4.5 GM/DL Lipase 8 8-78 U/L Urine Color CAT H Urine Clarity CLEAR Urine pH 6 5-9 Urine Specific [place] 1.025 H 1.016-1.022 Urine Protein NEGATIVE NEGATIVE Urine Glucose (UA) NEGATIVE NEGATIVE Urine Ketones NEGATIVE NEGATIVE Urine Nitrite NEGATIVE NEGATIVE Urine Bilirubin NEGATIVE NEGATIVE Urine Urobilinogen NORMAL NORMAL MG/DL Urine Leukocyte Esterase NEGATIVE NEGATIVE Urine RBC (Auto) NEGATIVE NEGATIVE Urine RBC NONE /HPF Urine WBC NONE /HPF Urine Squamous Epithelial Cells 5-10 /HPF Urine Crystals NONE /LPF Urine Bacteria TRACE /HPF Urine Casts NONE /LPF Urine Mucus NEGATIVE /LPF Urine Culture Indicated NO My Orders Orders - JOHN GORDON Cbc With Automated Diff (08/03/17 20:41) Comprehensive Metabolic Panel (08/03/17 20:41) Lipase (08/03/17 20:41) Magnesium (08/03/17 20:41) Protime With Inr (08/03/17 20:41) Partial Thromboplastin Time (08/03/17 20:41) Ua Culture If Indicated (08/03/17 20:41) Us Gallbladder [address]96[address] (08/03/17 20:41) Saline Lock/Iv-Start (08/03/17 20:41) Lactated Ringers (Lr 1000 Ml Iv Solution (08/03/17 20:41) Saline Lock/Iv-Start (08/03/17 20:43) Chest Pa/Lat (2 View) (08/03/17 20:44) Ondansetron Injection (Zofran Injectio (08/03/17 20:45) Lactated Ringers (Lr 1000 Ml Iv Solution (08/03/17 23:08) Ondansetron Injection (Zofran Injectio (08/03/17 23:15) Medications Given in ED Current Medications Medications Dose Ordered Sig/Lorie Route Start Time Stop Time Status Last Admin Dose Admin Lactated Ringer's 1,000 ml @ 0 mls/hr Q0M ONCE IV 08/03/17 20:41 08/03/17 20:44 DC 08/03/17 21:01 0 MLS/HR Lactated Ringer's 1,000 ml @ 0 mls/hr Q0M ONCE IV 08/03/17 23:08 08/03/17 23:09 DC 08/03/17 23:25 0 MLS/HR Ondansetron HCl 4 mg ONCE ONCE IVP 08/03/17 20:45 08/03/17 20:46 DC 08/03/17 21:01 4 MG Ondansetron HCl 4 mg ONCE ONCE IVP 08/03/17 23:15 08/03/17 23:16 DC 08/03/17 23:25 4 MG Vital Signs/I&O Vital Sign - Last 12Hours 08/03/17 20:28 Pulse 75 Resp 22 B/P (MAP) 167/104 (125) Pulse Ox 96 Blood Pressure Mean: 125 Progress Note #1: Time: 23:09 Progress Note The patient's nausea has improved however whenever she moves she gets dizzy again instructed nauseated again. We will give her another dose of Zofran and another liter of fluids to attempt gets her to produce some urine. She certainly seemed dehydrated area different get her under control she can follow up outpatient for further imaging when she is properly fasting. Progress Note #2: Time: 00:20 Progress Note Patient's producing urine which looks okay on the UA. We'll have her follow up outpatient with her primary care physician for further management of her symptoms. She has some workup started by her primary care physician and is set up to be established with the runway model to workup her heart murmur. ECG Initial ECG Impression Date: Aug 03, 2017 Initial ECG Impression Time: 20:22 Initial ECG Rate: 80 Initial ECG Rhythm: Normal Sinus Initial ECG Intervals: QRS (158) Initial ECG Impression: Normal, Nonspecific Changes Initial ECG Comparisson: No Previous ECG Available Comment Right bundle-branch block. No ST wave depression. Diagnostic Imaging Diagonstic Imaging: Xray Plain Films/CT/US/NM/MRI: chest Comments VIA [facility], [facility]. [place], [place] NAME: JERADMELANYCOLE Weeks MED REC#: [id number] PT STATUS: REG ER : 1975 PHYSICIAN: JOHN GORDON MD ADMIT DATE: 08/03/17/ER Draft Date of Exam:08/03/17 CHEST PA/LAT (2 VIEW) INDICATION: Chest pain. Shortness of air. Dizziness. COMPARISON: 01/10/2017. FINDINGS: Frontal and lateral views of the chest demonstrate normal heart size and pulmonary vascularity. The lungs are clear. There are no signs of infiltrate, pleural effusions or pneumothoraces. The visualized osseous structures show no acute abnormalities. IMPRESSION: 1. No acute process. No signs of infiltrates, effusions or pneumothoraces. Dictated on workstation # [id number] Dict: 08/03/172154 Trans: 08/03/172157 [id number] Interpreted by: AJAY CORRAL MD Electronically signed by: Reviewed: Reviewed by Me Diagonstic Imaging: Ultrasound Plain Films/CT/US/NM/MRI: other (gallbladder) Comments Gallbladder crenated unable to visualize appropriately. Reviewed: Reviewed by Me Departure Impression Impression: Primary Impression: Dehydration Additional Impression: Nausea & vomiting Qualified Codes: R11.2 - Nausea with vomiting, unspecified Disposition: 01 HOME, SELF-CARE Condition: Stable Departure-Patient Inst. Decision time for Depature: 00:22 Referrals: SRAVAN BARROS MD (PCP/Family) Primary Care Physician Patient Instructions: Nausea and Vomiting, Adult (DC) Add. Discharge Instructions: Use the Zofran or milligrams every 4 hours as needed to control your nausea. Get plenty fluids and follow up with your preestablished appointments with the heart doctor and your primary care physician. Return to ER. Begin to have more severe chest pain, shortness of breath, worsening abdominal pain or nausea and vomiting that will not respond to Zofran. All discharge instructions reviewed with patient and/or family. Voiced understanding. Scripts Ondansetron (Zofran Odt) 4 Mg Tab.rapdis 4 MG PO Q4H for Nausea, #20 TAB 0 Refills Prov: JOHN GORDON 08/04/17 Copy Copies To 1: Js MCCLELLAND MD Copies To 2: SRAVAN BARROS MD, TITUS J Aug 03, 2017 20:47
[2017-08-03 21:04] LABS: BASOPHILS % (AUTO) 0 % (0-10); EOSINOPHILS # (AUTO) 0.1 10^3/uL (0.0-0.3); EOSINOPHILS % (AUTO) 1 % (0-10); LYMPHOCYTES # (AUTO) 3.1 X 10^3 (1.0-4.0); LYMPHOCYTES % (AUTO) 29 % (12-44); MEAN CORPUSCULAR HEMOGLOBIN 31 PG (25-34); MEAN CORPUSCULAR HGB CONC 34 G/DL (32-36); MEAN CORPUSCULAR VOLUME 90 FL (80-99); MEAN PLATELET VOLUME 11.7 FL (7.4-10.4); MONOCYTES # (AUTO) 0.6 X 10^3 (0.0-1.0); MONOCYTES % (AUTO) 5 % (0-12); NEUTROPHILS # (AUTO) 6.8 X 10^3 (1.8-7.8); NEUTROPHILS % (AUTO) 64 % (42-75); PLATELET COUNT 256 10^3/uL (130-400); RED BLOOD COUNT 4.67 10^6/uL (4.35-5.85); RED CELL DISTRIBUTION WIDTH 12.6 % (10.0-14.5); WHITE BLOOD COUNT 10.7 10^3/uL (4.3-11.0)
[2017-08-03 21:23] LABS: PROTHROMBIN TIME PATIENT 13.3 SEC (12.2-14.7)
[2017-08-03 21:32] LABS: ALANINE AMINOTRANSFERASE 18 U/L (0-55); ANION GAP 11 MMOL/L (5-14); ASPARTATE AMINO TRANSFERASE 13 U/L (5-34); BILIRUBIN,TOTAL 0.3 MG/DL (0.1-1.0); BLOOD UREA NITROGEN 11 MG/DL (7-18); BUN/CREATININE RATIO 14; CALCIUM 9.6 MG/DL (8.5-10.1); CARBON DIOXIDE 25 MMOL/L (21-32); CHLORIDE 105 MMOL/L (98-107); CREATININE SERUM 0.79 MG/DL (0.60-1.30); GFR ESTIMATED > 60; GLUCOSE 112 MG/DL (70-105); LIPASE 8 U/L (8-78); MAGNESIUM 1.8 MG/DL (1.8-2.4); POTASSIUM 3.7 MMOL/L (3.6-5.0); SODIUM 141 MMOL/L (135-145); TOTAL PROTEIN 7.2 GM/DL (6.4-8.2)
--- NOTE | 2017-08-03 21:59 | Diagnostic Imaging Report ---
INDICATION: Chest pain. Shortness of air. Dizziness. COMPARISON: 01/10/2017. FINDINGS: Frontal and lateral views of the chest demonstrate normal heart size and pulmonary vascularity. The lungs are clear. There are no signs of infiltrate, pleural effusions or pneumothoraces. The visualized osseous structures show no acute abnormalities. IMPRESSION: 1. No acute process. No signs of infiltrates, effusions or pneumothoraces. Dictated by: Dictated on workstation # [id number]
[2017-08-03 23:53] LABS: BILIRUBIN,URINE NEGATIVE (NEGATIVE); KETONES,URINE NEGATIVE (NEGATIVE); LEUKOCYTE ESTERASE ,URINE NEGATIVE (NEGATIVE); NITRITE,URINE NEGATIVE (NEGATIVE); PH,URINE 6 (5-9); PROTEIN,URINE NEGATIVE (NEGATIVE); UROBILINOGEN,URINE NORMAL (NORMAL)
[2017-08-04] MEDS ORDERED: ONDA4TAB8 PO (00:30)
[2017-08-04 00:40] VITALS: BP 162/98
--- NOTE | 2017-08-04 06:39 | Diagnostic Imaging Report ---
PROCEDURE: US Gallbladder. TECHNIQUE: Multiple real-time grayscale images were obtained over the right upper quadrant in various projections. INDICATION: Right upper quadrant pain FINDINGS: There is mild diffuse hepatic steatosis. There is no focal hepatic mass demonstrated. Common bile duct is not well seen. No gross biliary dilatation is demonstrated, however. Doppler imaging demonstrates normal hepatopedal flow in the main portal vein. The gallbladder is contracted. No discrete stones are seen. There is no sonographic Boyle's sign. The pancreas is obscured and not well-seen. The right kidney measures 11 cm in length and appears normal. There is no ascites. IMPRESSION: 1. Diffuse hepatic steatosis. 2. The gallbladder is contracted which by history is likely postprandial as the patient ate one hour prior to the exam. 3. No additional abnormality is seen. Limited visualization of the pancreas and common bile duct. Agree with [facility] interpretation Dictated by: Dictated on workstation # [id number]
== END 2017-08-04 00:41 | disposition home or self-care (01) ==
LOC: EDUNIT# 20:13 → ER 20:15
DX: E86.0 Dehydration (principal); R11.2 Nausea with vomiting, unspecified; K21.9 Gastro-esophageal reflux disease without esophagitis; E03.9 Hypothyroidism, unspecified; F41.9 Anxiety disorder, unspecified; F17.210 Nicotine dependence, cigarettes, uncomplicated; Z90.710 Acquired absence of both cervix and uterus; Z90.89 Acquired absence of other organs
CPT/HCPCS: 36415; 71020; 76705; 80053; 81000; 83690; 83735; 85025; 85610; 85730; 93005

== ENCOUNTER → 2017-09-18 | Outpatient (CLI) | payer OTHER ==
[~2017-09-18] MED LIST changes: +ONDA4TAB8 PO
== END ==
LOC: CARD 10:17
PROVIDERS: ATTEND Internal Medicine Interventional Cardiology
DX: R07.9 Chest pain, unspecified (principal); I10 Essential (primary) hypertension; R06.02 Shortness of breath; R42 Dizziness and giddiness; F17.200 Nicotine dependence, unspecified, uncomplicated
CPT/HCPCS: 93306

== ENCOUNTER 2017-09-25 08:30 | Outpatient (RCR) | payer OTHER | END 2017-12-06 | disposition home or self-care (01) | LOC: CARD 08:30 | PROVIDERS: ATTEND Internal Medicine Interventional Cardiology | DX: R42 Dizziness and giddiness (principal); R07.9 Chest pain, unspecified; I10 Essential (primary) hypertension; R06.02 Shortness of breath; F17.200 Nicotine dependence, unspecified, uncomplicated | CPT/HCPCS: 93270 ==

== ENCOUNTER → 2017-09-25 | Outpatient (CLI) | payer OTHER ==
--- NOTE | 2017-09-25 12:11 | Diagnostic Imaging Report ---
INDICATION: Routine screening. COMPARISON: No prior mammograms are available for comparison. This is a baseline study. TECHNIQUE: Bilateral CC and MLO 3D mammography was performed. The current study was also evaluated with a Computer Aided Detection (CAD) system. FINDINGS: Mild parenchymal density is identified bilaterally. No discrete mass or malignant appearing microcalcifications are seen. The axillae are unremarkable. IMPRESSION: No mammographic features suspicious for malignancy are identified. ACR BI-RADS Category 1: Negative. Result letter will be mailed to the patient. Note: At least 10% of breast cancer is not imaged by mammography. Dictated by: Dictated on workstation # [id number]
== END ==
LOC: RAD 09:41
PROVIDERS: ATTEND Obstetrics & Gynecology
DX: Z12.31 Encounter for screening mammogram for malignant neoplasm of breast (principal)
CPT/HCPCS: 77067

== ENCOUNTER → 2017-10-12 | Outpatient (CLI) | payer OTHER ==
[~2017-10-12] MED LIST changes: +CATHETER FLUSH 10 ML SYR IV PRN
[2017-10-12 07:54] LABS: ALANINE AMINOTRANSFERASE 14 U/L (0-55); ALKALINE PHOSPHATASE 69 U/L (40-136); BILIRUBIN,TOTAL 0.6 MG/DL (0.1-1.0); BUN/CREATININE RATIO 14; CALCIUM 9.4 MG/DL (8.5-10.1); CARBON DIOXIDE 24 MMOL/L (21-32); CHLORIDE 105 MMOL/L (98-107); CHOLESTEROL 213 MG/DL (< 200); CREATININE SERUM 0.79 MG/DL (0.60-1.30); GFR ESTIMATED > 60; GLUCOSE 108 MG/DL (70-105); HDL CHOLESTEROL 47 MG/DL (40-60); SODIUM 138 MMOL/L (135-145); TOTAL PROTEIN 7.2 GM/DL (6.4-8.2); TRIGLYCERIDES 73 MG/DL (<150); VLDL CHOLESTEROL 15 MG/DL (5-40)
== END ==
LOC: CARD 07:18
PROVIDERS: ATTEND Internal Medicine Interventional Cardiology
DX: I10 Essential (primary) hypertension (principal); R07.9 Chest pain, unspecified; R06.02 Shortness of breath; R42 Dizziness and giddiness; F17.200 Nicotine dependence, unspecified, uncomplicated
CPT/HCPCS: 36415; 80053; 80061; 93225; 93226

== ENCOUNTER → 2017-11-21 | Outpatient (CLI) | payer OTHER ==
[~2017-11-21] MED LIST changes: +REGADENOSON 0.4 MG/5 ML SYR (LEXISCAN) IV ONE
[2017-11-21 09:28] VITALS: BP 122/74
--- NOTE | 2017-11-21 15:16 | Cardiology Stress Test Report ---
Stress Test Report Type of NM Stress Test: Test Type: LEXISCAN 0.4MG/5ML Date of Procedure/Referring: Date of Procedure: Nov 21, 2017 PCP Js Novoa MD Admitting Physician Francisco Barros MD Indications: Chest pain Baseline Heart Rate: 54 Baseline Blood Pressure: Blood Pressure Systolic: 122 Blood Pressure Diastolic: 74 Baseline EKG: Baseline EKG: Sinus rhythm. Summary: The patient was brought to the stress lab after informed consent was taken. Stress test was performed according to the Lexiscan protocol. 0.4 mg of IV Lexiscan was given. Low-grade exercise was performed. Baseline EKG showed sinus rhythm at 54 BPM. Blood pressure 122/74 mmHg. Maximum heart rate was sinus tachycardia at 102 bpm and blood pressure 128/70 mmHg. No chest pain, no ST-T wave abnormalities, no arrhythmias. 10.63 mCi of Myoview was given for rest imaging and 32.5 mCi of Myoview was given for stress imaging. Transient ischemic dilatation score 1.11. EF 63 percent with no wall motion abnormalities. There is a small reversible apical defect noted. SSS 2, SRS 1, SDS 1. Conclusion: Pharmacological stress test is negative for ischemia. Normal LV function with normal wall motion. Small apical defect. This is a low risk scan. Js NOVOA MD Nov 21, 2017 15:16
== END ==
LOC: CARD 07:40
PROVIDERS: ATTEND Internal Medicine Interventional Cardiology
DX: R07.9 Chest pain, unspecified (principal); I10 Essential (primary) hypertension; R06.02 Shortness of breath; F17.200 Nicotine dependence, unspecified, uncomplicated; R42 Dizziness and giddiness
CPT/HCPCS: 78452; 93017

== ENCOUNTER 2018-04-02 20:07 | Emergency (ER) | payer OTHER ==
[~2018-04-02] VITALS: Ht 175.3 cm; Wt 90.7 kg
[~2018-04-02 20:07] MED LIST changes: -CATHETER FLUSH 10 ML SYR IV PRN; -REGADENOSON 0.4 MG/5 ML SYR (LEXISCAN) IV ONE
[2018-04-02 20:41] LABS: BILIRUBIN,URINE NEGATIVE (NEGATIVE); CLARITY,URINE CLEAR; COLOR,URINE YELLOW; GLUCOSE, URINE (UA) NEGATIVE (NEGATIVE); KETONES,URINE 1+ (NEGATIVE); LEUKOCYTE ESTERASE ,URINE NEGATIVE (NEGATIVE); NITRITE,URINE NEGATIVE (NEGATIVE); PH,URINE 5 (5-9); PROTEIN,URINE NEGATIVE (NEGATIVE); UROBILINOGEN,URINE NORMAL (NORMAL)
[2018-04-02 20:47] LABS: BACTERIA,URINE TRACE /HPF; RBC,URINE 0-2 /HPF; WBC,URINE RARE /HPF
[2018-04-02 20:48] LABS: SQUAMOUS EPITHELIAL CELL,UR 0-2 /HPF
[2018-04-02 21:17] LABS: BASOPHILS % (AUTO) 0 % (0-10); EOSINOPHILS # (AUTO) 0.1 10^3/uL (0.0-0.3); EOSINOPHILS % (AUTO) 1 % (0-10); HEMATOCRIT 41 % (35-52); HEMOGLOBIN 14.4 G/DL (11.5-16.0); LYMPHOCYTES % (AUTO) 28 % (12-44); MEAN CORPUSCULAR HEMOGLOBIN 32 PG (25-34); MEAN CORPUSCULAR HGB CONC 35 G/DL (32-36); MEAN CORPUSCULAR VOLUME 91 FL (80-99); MEAN PLATELET VOLUME 11.3 FL (7.4-10.4); MONOCYTES # (AUTO) 0.7 X 10^3 (0.0-1.0); MONOCYTES % (AUTO) 6 % (0-12); NEUTROPHILS % (AUTO) 65 % (42-75); PLATELET COUNT 284 10^3/uL (130-400); RED BLOOD COUNT 4.51 10^6/uL (4.35-5.85); RED CELL DISTRIBUTION WIDTH 12.6 % (10.0-14.5); WHITE BLOOD COUNT 10.8 10^3/uL (4.3-11.0)
--- NOTE | 2018-04-02 21:25 | Diagnostic Imaging Report ---
PROCEDURE: CT head without contrast. TECHNIQUE: Multiple contiguous axial images were obtained through the brain without the use of intravenous contrast. INDICATION: Headache COMPARISON: None FINDINGS: The ventricles are normal in size, shape and position. There is no midline shift or mass effect. There is no hemorrhage or evidence of acute ischemia. The bony calvarium and visualized paranasal sinuses and mastoids are normal. IMPRESSION: 1. Negative CT head. Dictated by: Dictated on workstation # [id number]
[2018-04-02 21:31] LABS: ALANINE AMINOTRANSFERASE 11 U/L (0-55); ALBUMIN 4.1 GM/DL (3.2-4.5); ALKALINE PHOSPHATASE 74 U/L (40-136); AMYLASE 28 U/L (25-125); BILIRUBIN,TOTAL 0.4 MG/DL (0.1-1.0); BUN/CREATININE RATIO 15; CALCIUM 9.8 MG/DL (8.5-10.1); CARBON DIOXIDE 24 MMOL/L (21-32); CHLORIDE 105 MMOL/L (98-107); CREATININE SERUM 0.73 MG/DL (0.60-1.30); GFR ESTIMATED > 60; GLUCOSE 102 MG/DL (70-105); POTASSIUM 3.5 MMOL/L (3.6-5.0); SODIUM 139 MMOL/L (135-145); TOTAL PROTEIN 7.1 GM/DL (6.4-8.2)
--- NOTE | 2018-04-02 21:32 | ED General ---
General Chief Complaint: General Problems/Pain Stated Complaint: BODY ACHES Nursing Triage Note: pt reports for the last 6 weeks her fibromylagia is worsening. C/O muscle spasms, falling, passing out, muscles twitching uncontrollably, whens she takes a deep breath she feels like there are bubbles in her lungs, pain across her shoulders, back and left ear. Will have sharp pain behind her rt eye into her head and she states that she just wants to put a "knife in her chest to make it stop". Pain last 3-6 sec. States that she has pain under her left arm in axilla. She keeps loosing her voice. Her throat will hurt, making her chest go numb and then her arms until they are spaghetti-like. States that she has no balance. She states that she cannot eat or sleep. 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 She also hurt her back while working. She states that she has been taking muscle relaxers and narcotics but they do not help. No meds today. Tearful. Also c/o vomiting (none today) and diarrhea every times she eats. She is concerned that all of this is more than her fibromylagia Nursing Sepsis Screen: No Definite Risk Source of Information: Patient Exam Limitations: Other (MULTITUDE OF COMPLAINTS, TALKS RAPIDLY, NON-STOP AT LENGTH, DIFFICULT TO KEEP ON SUBJECT, DIFFICULT TO GET PT TO STOP TALKING TO ASK QUESTIONS. ) History of Present Illness Date Seen by Provider: Apr 02, 2018 Time Seen by Provider: 20:15 Initial Comments PT ARRIVES VIA POV FROM HOME PT STATES "I GOT A WHOLE LIST" "IT'S GOTTEN WORSE" PT WITH MULTITUDE OF CHRONIC COMPLAINTS--ONGOING FOR YEARS, STATES WORSE FOR THE LAST 6 WEEKS OR MORE. PT TALKS NON-STOP AT LENGTH, DIFFICULT TO KEEP ON SUBJECT AND DIFFICULT TO GET PT TO STOP TALKING FOR ME TO ASK QUESTIONS. SENTENCES RUN TOGETHER PT REFUSES TO PRIORITIZE ALL HER CHRONIC COMPLAINTS AND IS ADAMANT THAT THEY ALL BE ADDRESSED TONIGHT. UNABLE TO KEEP UP WITH ALL OF PT'S COMPLAINTS STATES SYMPTOMS ARE NO DIFFERENT TODAY IN ANY WAY HAS NOT TAKEN ANYTHING FOR SYMPTOMS, AND GOES ON ABOUT NOT TAKING ANYTHING FOR PAIN--STATES "I DON'T SLEEP" AND THEN STATES ALL MEDICATIONS--"IT MESSES WITH MY SLEEP" SO SHE DOESN'T TAKE ANYTHING, AND STATES "NONE OF THEM EVER WORK" " SO I'M NOT GOING TO TAKE ANYTHING" PT STATES "I HAVE STAGE 4 FIBROMYALGIA" STATES SHE HAS BEEN "STRESSED OUT" FOR THE LAST 6 WEEKS, AND LOST HER JOB AND HER BACK PAIN STATES RIGHT NOW SHE HAS "VERY MILD BACK PAIN" BUT HAS "TWITCHING AND SHAKING ON THE INSIDE" "NOW MY LUNG HURTS UNDER MY ARM, MY THROAT, PAIN INSIDE MY RIGHT EYE" "MUSCLE TWITCHING IN MY LEFT HIP" "I CAN'T REMEMBER ANYTHING" PT STATES SHE HAS BEEN PRESCRIBED ADDERALL, BUT IS NOT TAKING PRESCRIBED AND NOT TAKING ON A REGULAR BASIS, STATES SHE ONLY TAKES HALF A PILL WHEN SHE DOES TAKE IT "LOST MY VOICE TONIGHT" "WHEN YOU TOUCH ME IT'S HOT THEN NORMAL" LAST PM WAS IN HER RIGHT ARM, LEFT ARM AND LEFT HIP "AND IT MOVES CONSTANTLY THROUGHOUT MY BODY" "TINGLING ON MY RIGHT SIDE, PASSED OUT 3 OR 4 TIMES" "BRAIN'S TOO FAST AND I CANT GET THEM OUT" "I NEVER HAD MUSCLE PAIN-ALWAYS NERVE" HAS NOT TAKEN ANY MEDICATIONS TODAY PT HAS HISTORY OF SUBSTANCE ABUSE, INCLUDING METH, COCAINE AND ATIVAN, BUT DENIES IV USE AND DENIES RECENT USE PT SAW DR. KENDALL LAST WEEK AND HAS AN APPOINTMENT NEXT WEEK FOR FOLLOW UP AND LAB. PCP: DR. KENDALL Allergies and Home Medications Allergies Coded Allergies: erythromycin base (Unverified Allergy, Unknown, 04/02/18) Home Medications Cephalexin 500 Mg Capsule, 500 MG PO BID Prescribed by: FARIDA DUNCAN on 10/14/162125 Ketorolac Tromethamine 10 Mg Tablet, 10 MG PO Q6H Prescribed by: NANCY ZACARIAS on 04/02/18 223 Nitrofurantoin Monohyd/M-Cryst 100 Mg Capsule, 1 TAB PO BID Prescribed by: ADEBAYO FARLEY on 01/10/17 2340 Omeprazole 20 Mg Capsule., 20 MG PO DAILY, (Reported) Ondansetron 4 Mg Tab.rapdis, 4 MG SL Q4H PRN for NAUSEA/VOMITING-1ST LINE Prescribed by: ADEBAYO FARLEY on 01/10/17 2340 Ondansetron 4 Mg Tab.rapdis, 4 MG PO Q4H Prescribed by: JOHN GORDON on 08/04/17 0030 Patient Home Medication List Home Medication List Reviewed: Yes Review of Systems Constitutional: see HPI EENTM: see HPI Respiratory: short of breath Cardiovascular: chest pain, syncope Gastrointestinal: nausea Musculoskeletal: see HPI Psychiatric/Neurological: See HPI Past Ljjrqrm-Ewzkbw-Kidimt Hx Patient Social History Alcohol Use: Occasionally Uses Alcohol Beverage of Choice: Beer Recreational Drug Use: Yes (METH, COCAINE, ATIVAN, THC, DENIES IV USE OR RECENT USE PER PT ON 04/02/18) Drug of Choice: METH, COCAINE, ATIVAN, THC Smoking Status: Current Everyday Smoker (1 PPD) Type Used: Cigarettes (1 PPD), Electronic/Vapor Recent Foreign Travel: No Contact w/Someone Who Travel: No Recent Infectious Disease Expo: No Recent Hopitalizations: No Physical Abuse: No Sexual Abuse: No Mistreated: No Fear: No Past Medical History Surgeries: Yes (HYST/OVARIES INTACT; RIGHT SHOULDER; EGD' SINUS SURGERY) Adenoidectomy, Hysterectomy, Orthopedic, Tonsillectomy Respiratory: No Cardiac: Yes (RBBB AND LPFB) Hypertension Neurological: Yes Headaches /Migraines Reproductive Disorders: No Genitourinary: No Gastrointestinal: Yes ("no flap from esophogus to stomach") Gastroesophageal Reflux Musculoskeletal: Yes Fibromyalgia, Chronic Back Pain Endocrine: Yes (hypoglycemia) Hypothyroidsim HEENT: Yes (SINUS PROBLEMS--S/P SURGERY) Cancer: No Psychosocial: Yes Sleep Difficulties, Anxiety Nursing Suicide Risk Score: 0 Integumentary: No Blood Disorders: No Physical Exam Vital Signs Capillary Refill : Less Than 3 Seconds Height, Weight, BMI Height: 5'9.00" Weight: 200lbs. oz. 90.120556wq; BMI Method:Stated General Appearance: No Apparent Distress, WD/WN, Anxious, Other (EXTREMELY DRAMATIC; UNABLE TO LOCALIZE PAIN-C/O PAIN EVERYWHERE SHE IS TOUCHED) HEENT: PERRL/EOMI, TMs Normal, Normal ENT Inspection, Pharynx Normal Neck: Full Range of Motion, Normal Inspection, Supple; No Carotid Bruit, No JVD Respiratory: Normal Breath Sounds, No Accessory Muscle Use, No Respiratory Distress Cardiovascular: Regular Rate, Rhythm, No Edema, No Gallop, No JVD, No Murmur, Normal Peripheral Pulses Gastrointestinal: Normal Bowel Sounds, No Organomegaly, No Pulsatile Mass, Non Tender, Soft Back: No Decreased Range of Motion Extremity: Normal Capillary Refill, Normal Range of Motion, No Calf Tenderness , No Pedal Edema Neurologic/Psychiatric: Alert, Oriented x3, No Motor/Sensory Deficits, costing manager II- XII Norm as Tested, Other (MENTATION ABOVE.) Reflexes: 2+ Bicep (R), 2+ Bicep (L), 2+ Knee (R), 2+ Knee (L) Skin: Normal Color, Warm/Dry; No Rash Progress/Results/Core Measures Suspected Sepsis Recent Fever Within 48 Hours: No Infection Criteria Present: None New/Unexplained Altered Menta: No Sepsis Screen: No Definite Risk SIRS Temperature:98.4 Pulse: 84 Respiratory Rate: 16 Blood Pressure 164 /113 Mean: 130 Results/Orders Lab Results My Orders Medications Given in ED Vital Signs/I&O Capillary Refill : Less Than 3 Seconds Blood Pressure Mean: 130 Progress Note : Progress Note PT REFUSES ANY MEDICATIONS IN ER BLOOD PRESSURE DOWN WITHOUT TREATMENT IN ER AT DISMISSAL, PT STATES SHE IS SUPPOSED TO GET SET UP FOR MRI'S, IS SUPPOSED TO BE REFERRED TO NEUROLOGIST, ACID CUTTER AND PAIN MANAGEMENT, BUT NONE OF THIS HAS BEEN DONE YET' PT STATES SHE HAS AN FOLLOW UP APPOINTMENT NEXT WEEK AND TO HAVE LAB DONE ECG Initial ECG Impression Date: Apr 02, 2018 Initial ECG Impression Time: 20:42 Initial ECG Rate: 62 Initial ECG Rhythm: Normal Sinus (RBBB AND LPFB) Initial ECG Comparisson: Unchanged Diagnostic Imaging Comments CT HEAD--NO ACUTE PROCESS, PER RADIOLOGIST REPORT AT 1930 CXR--NO ACUTE PROCESS, PER RADIOLOGIST REPORT @ 2155 Reviewed: Reviewed by Me Departure Impression Primary Impression: Chronic pain Disposition: 01 HOME, SELF-CARE Condition: Stable Departure-Patient Inst. Referrals: SRAVAN KENDALL MD (PCP/Family) Primary Care Physician Patient Instructions: CHRONIC PAIN Add. Discharge Instructions: TAKE ALL OF YOUR MEDICATIONS EVERY DAY PRESCRIBED--GET A PILL ORGANIZER AND USE YOUR PHONE FOR REMINDERS FOLLOW UP WITH DR. KENDALL THIS WEEK FOR FURTHER CARE All discharge instructions reviewed with patient and/or family. Voiced understanding. Scripts Ketorolac Tromethamine (Ketorolac Tromethamine) 10 Mg Tablet 10 MG PO Q6H for Pain, #15 TAB Prov: NANCY ZACARIAS DO 04/02/18 NANCY ZACARIAS DO Apr 02, 2018 21:32
--- NOTE | 2018-04-02 21:46 | Diagnostic Imaging Report ---
INDICATION: Wheezing COMPARISON: 08/03/2017 FINDINGS: Frontal and lateral views of the chest demonstrate clear lungs bilaterally. The heart is normal. There is no pneumothorax. The osseous structures normal. IMPRESSION: Negative chest Dictated by: Dictated on workstation # [id number]
[2018-04-02 21:52] LABS: TSH (THYROID ANALYZER) 1.22 UIU/ML (0.35-4.94)
[2018-04-02 21:57] LABS: AMPHETAMINE SCREEN, URINE POSITIVE (NEGATIVE); BARBITURATE SCREEN URINE NEGATIVE (NEGATIVE); BENZODIAZEPINES SCREEN URINE NEGATIVE (NEGATIVE); CANNABINOID SCREEN, URINE NEGATIVE (NEGATIVE); COCAINE SCREEN URINE NEGATIVE (NEGATIVE); METHADONE STAT NEGATIVE (NEGATIVE); METHAMPHETAMINE SCREEN URINE S NEGATIVE (NEGATIVE); OPIATE SCREEN URINE NEGATIVE (NEGATIVE); TRICYCLIC ANTIDEPRESSANTS SCRE NEGATIVE (NEGATIVE)
[2018-04-02 21:58] LABS: OXYCODONE STAT NEGATIVE (NEGATIVE); PROPOXYPHENE STAT NEGATIVE (NEGATIVE)
[2018-04-02] MEDS ORDERED: PANTOPRAZOLE 40 MG/10 ML (PROTONIX) VIAL IV ONE (22:30)
[2018-04-02] MEDS ORDERED: KETOROLAC 30 MG/ML VIAL IVP ONE (22:30)
[2018-04-02] MEDS ORDERED: KETO10TA PO (22:31)
[2018-04-02 22:46] VITALS: BP 135/91
== END 2018-04-02 22:45 | disposition home or self-care (01) ==
LOC: EDUNIT# 20:07 → ER 20:09
DX: G89.29 Other chronic pain (principal); M79.7 Fibromyalgia; I10 Essential (primary) hypertension; G43.909 Migraine, unspecified, not intractable, without status migrainosus; K21.9 Gastro-esophageal reflux disease without esophagitis; E03.9 Hypothyroidism, unspecified; F41.9 Anxiety disorder, unspecified; F17.210 Nicotine dependence, cigarettes, uncomplicated; Z88.0 Allergy status to penicillin; Z90.710 Acquired absence of both cervix and uterus; Z90.89 Acquired absence of other organs
CPT/HCPCS: 36415; 70450; 71046; 80053; 80306; 80320; 81000; 82150; 83735; 84443; 84484; 85025; 93005; 93041; 96374; 96375

== ENCOUNTER 2018-09-20 16:00 | Emergency (ER) | payer OTHER ==
[~2018-09-20] VITALS: Ht 172.7 cm; Wt 90.7 kg
[~2018-09-20 16:00] MED LIST changes: +KETO10TA PO
--- NOTE | 2018-09-20 16:44 | ED Abdominal Pain ---
General Chief Complaint: Abdominal/GI Problems Stated Complaint: ABD PAIN Nursing Triage Note: pt presents to ed with complaints of lower pelvic pain that radiates to her back, recent weight loss, nausea, and increased thirst, and pain with urination x 3 weeks. Sepsis Screen: No Definite Risk Source of Information: Patient Exam Limitations: No Limitations History of Present Illness Date Seen by Provider: Sep 20, 2018 Time Seen by Provider: 16:41 Initial Comments 43-year-old female who presents to the emergency room with complaints of lower abdominal/pelvic pain that radiates to her back. She has had urinary frequency and mild burning past [address] Stone has not made an appointment to see him for this issue. Timing/Duration: Other (3 weeks) Severity/Quality: Mild Associated Symptoms: Nausea/Vomiting Allergies and Home Medications Allergies Coded Allergies: erythromycin base (Unverified Allergy, Unknown, 04/02/18) Home Medications Cephalexin 500 Mg Capsule, 500 MG PO BID Prescribed by: FARIDA DUNCAN on 10/14/162125 Ketorolac Tromethamine 10 Mg Tablet, 10 MG PO Q6H Prescribed by: NANCY ZACARIAS on 04/02/18 2231 Nitrofurantoin Monohyd/M-Cryst 100 Mg Capsule, 1 TAB PO BID Prescribed by: ADEBAYO FARLEY on 01/10/17 2340 Omeprazole 20 Mg Capsule.dr, 20 MG PO DAILY, (Reported) Ondansetron 4 Mg Tab.rapdis, 4 MG SL Q4H PRN for NAUSEA/VOMITING-1ST LINE Prescribed by: ADEBAYO FARLEY on 01/10/17 2340 Ondansetron 4 Mg Tab.rapdis, 4 MG PO Q4H Prescribed by: JOHN GORDON on 08/04/17 0030 Ondansetron HCl 4 Mg Tab, 4 MG PO Q4H PRN for NAUSEA/VOMITING-1ST LINE Prescribed by: SUZIE KEEN on 09/20/18 1850 Patient Home Medication List Home Medication List Reviewed: Yes Review of Systems Review of Systems Constitutional: no symptoms reported, see HPI Gastrointestinal: See HPI, Abdominal Pain (suprapubic) Genitourinary: See HPI, Frequency All Other Systems Reviewed Negative Unless Noted: Yes Past Gcfftnw-Gdvjxk-Wihrdd Hx Past Med/Social Hx: Reviewed Nursing Past Med/Soc Hx Patient Social History Alcohol Use: Denies Use Number of Drinks Today: AA Alcohol Beverage of Choice: Beer Recreational Drug Use: No Drug of Choice: METH, COCAINE, ATIVAN, THC Smoking Status: Current Everyday Smoker Type Used: Cigarettes, Electronic/Vapor Recent Foreign Travel: No Contact w/Someone Who Travel: No Recent Infectious Disease Expo: No Recent Hopitalizations: No Physical Abuse: No Sexual Abuse: No Mistreated: No Fear: No Past Medical History Surgeries: Yes (HYST/OVARIES INTACT; RIGHT SHOULDER; EGD' SINUS SURGERY) Adenoidectomy, Hysterectomy, Orthopedic, Tonsillectomy Respiratory: No Cardiac: Yes (RBBB AND LPFB) Hypertension Neurological: Yes Headaches /Migraines Reproductive Disorders: No Genitourinary: No Gastrointestinal: Yes ("no flap from esophogus to stomach") Gastroesophageal Reflux Musculoskeletal: Yes Fibromyalgia, Chronic Back Pain Endocrine: Yes (hypoglycemia) Hypothyroidsim HEENT: Yes (SINUS PROBLEMS--S/P SURGERY) Cancer: No Psychosocial: Yes Sleep Difficulties, Anxiety Integumentary: No Blood Disorders: No Family Medical History Reviewed Nursing Family Hx Physical Exam Vital Signs Vital Signs - First Documented 09/20/18 16:25 Temp 96.5 Pulse 73 Resp 20 B/P (MAP) 137/86 (103) Pulse Ox 100 Capillary Refill : Less Than 3 Seconds Height/Weight/BMI Height: 5'8.00" Weight: 200lbs. oz. 90.783193wm; BMI Method:Estimated General Appearance: WD/WN, no apparent distress Respiratory: chest non-tender, lungs clear, normal breath sounds, no respiratory distress, no accessory muscle use Cardiovascular: normal peripheral pulses, regular rate, rhythm, no edema, no gallop, no JVD, no murmur Gastrointestinal: normal bowel sounds, soft, no organomegaly, no pulsatile mass , tenderness (right lower quadrant tenderness) Extremities: normal capillary refill Back: normal inspection, no CVA tenderness, no vertebral tenderness Neurologic/Psychiatric: alert, normal mood/affect, oriented x 3 Progress/Results/Core Measures Results/Orders Lab Results Laboratory Tests Test 09/20/18 16:38 09/20/18 16:39 09/20/18 16:40 Range/Units Glucometer 115 H 70-110 MG/DL Urine Color YELLOW Urine Clarity CLEAR Urine pH 6 5-9 Urine Specific [place] 1.015 L 1.016-1.022 Urine Protein NEGATIVE NEGATIVE Urine Glucose (UA) NEGATIVE NEGATIVE Urine Ketones NEGATIVE NEGATIVE Urine Nitrite NEGATIVE NEGATIVE Urine Bilirubin NEGATIVE NEGATIVE Urine Urobilinogen NORMAL NORMAL MG/DL Urine Leukocyte Esterase NEGATIVE NEGATIVE Urine RBC (Auto) NEGATIVE NEGATIVE Urine RBC NONE /HPF Urine WBC RARE /HPF Urine Squamous Epithelial Cells 0-2 /HPF Urine Crystals NONE /LPF Urine Bacteria FEW H /HPF Urine Casts NONE /LPF Urine Mucus NEGATIVE /LPF Urine Culture Indicated NO White Blood Count 7.3 4.3-11.0 10^3/uL Red Blood Count 4.60 4.35-5.85 10^6/uL Hemoglobin 14.0 11.5-16.0 G/DL Hematocrit 42 35-52 % Mean Corpuscular Volume 91 80-99 FL Mean Corpuscular Hemoglobin 30 25-34 PG Mean Corpuscular Hemoglobin Concent 33 32-36 G/DL Red Cell Distribution Width 12.5 10.0-14.5 % Platelet Count 248 130-400 10^3/uL Mean Platelet Volume 11.3 H 7.4-10.4 FL Neutrophils (%) (Auto) 65 42-75 % Lymphocytes (%) (Auto) 28 12-44 % Monocytes (%) (Auto) 6 0-12 % Eosinophils (%) (Auto) 1 0-10 % Basophils (%) (Auto) 0 0-10 % Neutrophils # (Auto) 4.8 1.8-7.8 X 10^3 Lymphocytes # (Auto) 2.0 1.0-4.0 X 10^3 Monocytes # (Auto) 0.5 0.0-1.0 X 10^3 Eosinophils # (Auto) 0.1 0.0-0.3 10^3/uL Basophils # (Auto) 0.0 0.0-0.1 10^3/uL Sodium Level 141 135-145 MMOL/L Potassium Level 3.5 L 3.6-5.0 MMOL/L Chloride Level 105 98-107 MMOL/L Carbon Dioxide Level 27 21-32 MMOL/L Anion Gap 9 5-14 MMOL/L Blood Urea Nitrogen 11 7-18 MG/DL Creatinine 0.80 0.60-1.30 MG/DL Estimat Glomerular Filtration Rate > 60 BUN/Creatinine Ratio 14 Glucose Level 82 70-105 MG/DL Calcium Level 9.7 8.5-10.1 MG/DL Corrected Calcium 9.5 8.5-10.1 MG/DL Total Bilirubin 0.4 0.1-1.0 MG/DL Aspartate Amino Transf (AST/SGOT) 16 5-34 U/L Alanine Aminotransferase (ALT/SGPT) 10 0-55 U/L Alkaline Phosphatase 73 40-136 U/L Total Protein 7.4 6.4-8.2 GM/DL Albumin 4.2 3.2-4.5 GM/DL Amylase Level 37 25-125 U/L Lipase 10 8-78 U/L My Orders Orders - SUZIE KEEN Comprehensive Metabolic Panel (09/20/18 16:40) Lipase (09/20/18 16:40) Amylase (09/20/18 16:40) Ua Culture If Indicated (09/20/18 16:40) Saline Lock/Iv-Start (09/20/18 16:40) Cbc With Automated Diff (09/20/18 16:40) Ct Abdomen/Pelvis W (09/20/18 17:54) Iohexol Injection (Omnipaque 350 Mg/Ml 1 (09/20/18 18:15) Contrast Received (Contrast Received) (09/20/18 18:15) Ns (Ivpb) (Sodium Chloride 0.9% Ivpb Bag (09/20/18 18:15) Vital Signs/I&O 09/20/18 09/20/18 16:25 19:06 Temp 96.5 Pulse 73 87 Resp 20 20 B/P (MAP) 137/86 (103) 145/100 (115) Pulse Ox 100 98 Blood Pressure Mean: 103 Progress Progress Note : Time: 18:57 Progress Note I have seen and evaluated the patient. She is still adamant that she does not want any pain medication at this time. I've informed her of her laboratory and CT findings. It was discussed that she needs to follow up closely for the adrenal nodule that was found on the CT scan. She agrees with plan of care, plans were discharged, return precautions were given. Diagnostic Imaging Diagonstic Imaging: CT Plain Films/CT/US/NM/MRI: abdomen, pelvis Comments [facility] [place], [place] NAME: CYNTHIA MARS MED REC#: [id number] PT STATUS: REG ER : 1975 PHYSICIAN: SUZIE KEEN ADMIT DATE: 09/20/18/ER Draft Date of Exam:09/20/18 CT ABDOMEN/PELVIS W PROCEDURE: CT abdomen and pelvis with contrast. TECHNIQUE: Multiple contiguous axial images were obtained through the abdomen and pelvis after administration of intravenous contrast. INDICATION: Abdominal pain. COMPARISON: None. FINDINGS: The lung bases are clear. The liver, gallbladder, pancreas, spleen, right adrenal gland, left kidney, collecting systems and unopacified bladder are negative. Indeterminate 1.8 cm low-attenuation nodule in the left kidney. Subcentimeter simple appearing cyst in the right kidney. Normal appendix. Hysterectomy. No free intraperitoneal air or fluid. No lymphadenopathy. No evidence of bowel obstruction. No acute osseous findings. IMPRESSION: 1. No acute CT findings in the abdomen or pelvis. 2. Indeterminate 1.8 cm nodule in the left adrenal gland. Although this may represent a benign adrenal adenoma, is technically indeterminate on this exam. This could be better evaluated with multiphase dedicated CT. Dictated on workstation # [id number] Dict: 09/20/18 1835 Trans: 09/20/18 1842 [facility] [id number] Interpreted by: MORTEZA JEAN BAPTISTE MD Electronically signed by: Reviewed: Reviewed by Me Departure Impression Primary Impression: Abdominal pain Additional Impression: Adrenal nodule Disposition: HOME, SELF-CARE Condition: Stable/Unchanged Departure-Patient Inst. Decision time for Depature: 18:48 Referrals: SRAVAN KENDALL MD (PCP/Family) Primary Care Physician Patient Instructions: Acute Abdomen (Belly Pain), Adult (DC), Nausea and Vomiting, Adult Add. Discharge Instructions: Take medications as directed. Follow-up with her primary care provider within 1 week for recheck and to discuss her CT findings of the adrenal nodule. You may use ibuprofen and Tylenol as directed by the bottle for pain relief. Return back to the emergency room for worsening symptoms or concerns as needed. All discharge instructions reviewed with patient and/or family. Voiced understanding. Scripts Ondansetron HCl (Zofran) 4 Mg Tab 4 MG PO Q4H PRN for NAUSEA/VOMITING-1ST LINE, #14 TAB Prov: SUZIE KEEN 09/20/18 SUZIE KEEN Sep 20, 2018 16:44
[2018-09-20 16:51] LABS: BASOPHILS % (AUTO) 0 % (0-10); EOSINOPHILS # (AUTO) 0.1 10^3/uL (0.0-0.3); EOSINOPHILS % (AUTO) 1 % (0-10); HEMATOCRIT 42 % (35-52); LYMPHOCYTES % (AUTO) 28 % (12-44); MEAN CORPUSCULAR HEMOGLOBIN 30 PG (25-34); MEAN CORPUSCULAR HGB CONC 33 G/DL (32-36); MEAN CORPUSCULAR VOLUME 91 FL (80-99); MEAN PLATELET VOLUME 11.3 FL (7.4-10.4); MONOCYTES # (AUTO) 0.5 X 10^3 (0.0-1.0); MONOCYTES % (AUTO) 6 % (0-12); NEUTROPHILS # (AUTO) 4.8 X 10^3 (1.8-7.8); NEUTROPHILS % (AUTO) 65 % (42-75); PLATELET COUNT 248 10^3/uL (130-400); RED CELL DISTRIBUTION WIDTH 12.5 % (10.0-14.5); WHITE BLOOD COUNT 7.3 10^3/uL (4.3-11.0)
[2018-09-20 16:52] LABS: BILIRUBIN,URINE NEGATIVE (NEGATIVE); CLARITY,URINE CLEAR; COLOR,URINE YELLOW; GLUCOSE, URINE (UA) NEGATIVE (NEGATIVE); KETONES,URINE NEGATIVE (NEGATIVE); LEUKOCYTE ESTERASE ,URINE NEGATIVE (NEGATIVE); NITRITE,URINE NEGATIVE (NEGATIVE); PH,URINE 6 (5-9); PROTEIN,URINE NEGATIVE (NEGATIVE); UROBILINOGEN,URINE NORMAL (NORMAL)
[2018-09-20 17:00] LABS: BACTERIA,URINE FEW /HPF; SQUAMOUS EPITHELIAL CELL,UR 0-2 /HPF; WBC,URINE RARE /HPF
[2018-09-20 17:14] LABS: ALANINE AMINOTRANSFERASE 10 U/L (0-55); ALBUMIN 4.2 GM/DL (3.2-4.5); ALKALINE PHOSPHATASE 73 U/L (40-136); AMYLASE 37 U/L (25-125); BILIRUBIN,TOTAL 0.4 MG/DL (0.1-1.0); BUN/CREATININE RATIO 14; CALCIUM 9.7 MG/DL (8.5-10.1); CARBON DIOXIDE 27 MMOL/L (21-32); CHLORIDE 105 MMOL/L (98-107); GFR ESTIMATED > 60; GLUCOSE 82 MG/DL (70-105); LIPASE 10 U/L (8-78); POTASSIUM 3.5 MMOL/L (3.6-5.0); SODIUM 141 MMOL/L (135-145); TOTAL PROTEIN 7.4 GM/DL (6.4-8.2)
[2018-09-20] MEDS ORDERED: RECEIVED CONTRAST (Hold Metformin) IV SCH (18:15)
[2018-09-20] MEDS ORDERED: NS 100 ML (IVPB) BAG IV ONE (18:15)
[2018-09-20] MEDS ORDERED: IOHEXOL 350 MG/ML 100 ML (OMNIPAQUE 350) VIAL IV ONE (18:15)
--- NOTE | 2018-09-20 18:43 | Diagnostic Imaging Report ---
PROCEDURE: CT abdomen and pelvis with contrast. TECHNIQUE: Multiple contiguous axial images were obtained through the abdomen and pelvis after administration of intravenous contrast. INDICATION: Abdominal pain. COMPARISON: None. FINDINGS: The lung bases are clear. The liver, gallbladder, pancreas, spleen, right adrenal gland, left kidney, collecting systems and unopacified bladder are negative. Indeterminate 1.8 cm low-attenuation nodule in the left kidney. Subcentimeter simple appearing cyst in the right kidney. Normal appendix. Hysterectomy. No free intraperitoneal air or fluid. No lymphadenopathy. No evidence of bowel obstruction. No acute osseous findings. IMPRESSION: 1. No acute CT findings in the abdomen or pelvis. 2. Indeterminate 1.8 cm nodule in the left adrenal gland. Although this may represent a benign adrenal adenoma, is technically indeterminate on this exam. This could be better evaluated with multiphase dedicated CT. Dictated by: Dictated on workstation # [id number]
[2018-09-20] MEDS ORDERED: ONDN4T PO (18:50)
[2018-09-20 19:06] VITALS: BP 145/100
== END 2018-09-20 19:07 | disposition home or self-care (01) ==
LOC: EDUNIT# 16:00 → ER 16:01
DX: R10.2 Pelvic and perineal pain (principal); E27.9 Disorder of adrenal gland, unspecified; I10 Essential (primary) hypertension; G43.909 Migraine, unspecified, not intractable, without status migrainosus; K21.9 Gastro-esophageal reflux disease without esophagitis; E03.9 Hypothyroidism, unspecified; F41.9 Anxiety disorder, unspecified; F17.210 Nicotine dependence, cigarettes, uncomplicated; F17.290 Nicotine dependence, other tobacco product, uncomplicated; F15.10 Other stimulant abuse, uncomplicated; F14.10 Cocaine abuse, uncomplicated; F12.10 Cannabis abuse, uncomplicated; Z88.0 Allergy status to penicillin; Z90.710 Acquired absence of both cervix and uterus; Z90.89 Acquired absence of other organs; Z98.890 Other specified postprocedural states
CPT/HCPCS: 36415; 74177; 80053; 81000; 82150; 82962; 83690; 85025

== ENCOUNTER → 2018-10-25 | Outpatient (CLI) | payer OTHER ==
[~2018-10-25] MED LIST changes: +ONDN4T PO
--- NOTE | 2018-10-25 19:17 | Diagnostic Imaging Report ---
INDICATION: Routine screening. Comparison is made with prior mammogram from 09/25/2017. 2-D and 3-D bilateral screening mammography was performed with computer-aided Detection (CAD) system. FINDINGS: Both breasts remain heterogeneously dense, limiting the sensitivity of mammography. The parenchymal pattern is stable. No mass or malignant-appearing microcalcifications are seen. The axillae are unremarkable. IMPRESSION: No mammographic features suspicious for malignancy are identified. ACR BI-RADS Category 1: Negative. Result letter will be mailed to the patient. Note: At least 10% of breast cancer is not imaged by mammography. Dictated by: Dictated on workstation # [id number]
== END ==
LOC: RAD 07:58
PROVIDERS: ATTEND Obstetrics & Gynecology
DX: Z12.31 Encounter for screening mammogram for malignant neoplasm of breast (principal)
CPT/HCPCS: 77067